=== PATIENT | male | born 1940 | race Caucasian/White ===

== ENCOUNTER → 2016-08-03 | Outpatient (CLI) | payer MEDICARE ==
[2016-08-03 09:15] LABS: CH 31.7; CHCM 34.8; HCT 47.5 % (39.0-53.0); HDW 2.67; HGB 16.1 gm/dL (13.0-17.5); MCHC 33.9 g/dL (31.0-37.0); MCV 91.6 fL (80.0-100.0); Mean Platelet Volume 6.8; RBC 5.19 m/uL (4.30-5.90); RDW 12.8 % (11.5-15.5); WBC 5.6 k/uL (3.8-10.6)
[2016-08-03 10:52] LABS: Erythrocyte Sedimentation Rate 2 mm/hr (0-15)
[2016-08-03 11:55] LABS: Hemoglobin A1C 5.6 % (4.2-6.1)
[2016-08-03 17:44] LABS: ALT 42 U/L (21-72); AST 28 U/L (17-59); Alkaline Phosphatase 49 U/L (38-126); Amylase 67 U/L (30-110); Anion Gap 12 mmol/L; Blood Urea Nitrogen 10 mg/dL (9-20); Calcium 9.6 mg/dL (8.4-10.2); Carbon Dioxide 27 mmol/L (22-30); Chloride 105 mmol/L (98-107); Cholesterol 162 mg/dL (<200); Glucose 126 mg/dL (74-99); HDL Cholesterol 35 mg/dL (40-60); Non-African American GFR(MDRD) >60 (>60 ml/min/1.73 sqM); Potassium 4.8 mmol/L (3.5-5.1); Sodium 144 mmol/L (137-145); Total Bilirubin 0.8 mg/dL (0.2-1.3); Total Protein 7.6 g/dL (6.3-8.2); Triglycerides 111 mg/dL (<150)
[2016-08-03 18:14] LABS: Prostate Specific Antigen 1.14 ng/mL (0.00-4.00)
== END | disposition home or self-care (01) ==
LOC: LABWHC1 08:03
PROVIDERS: ATTEND Family Medicine
DX: R10.9 Unspecified abdominal pain (principal); R53.83 Other fatigue; E78.5 Hyperlipidemia, unspecified; I25.10 Atherosclerotic heart disease of native coronary artery without angina pectoris; E55.9 Vitamin D deficiency, unspecified
CPT/HCPCS: 36415; 80053; 80061; 82150; 82306; 83036; 83690; 84153; 85027; 85652

== ENCOUNTER → 2018-08-02 | Outpatient (CLI) | payer MEDICARE ==
[2018-08-02 09:20] LABS: Basophils # (A) 0.1 k/uL (0-0.2); Basophils % (A) 1 %; Eosinophils # (A) 0.3 k/uL (0-0.7); Eosinophils % (A) 6 %; HCT 45.3 % (39.0-53.0); Lymphocytes # (A) 0.9 k/uL (1.0-4.8); Lymphocytes % (A) 18 %; MCH 31.3 pg (25.0-35.0); MCHC 33.2 g/dL (31.0-37.0); MCV 94.2 fL (80.0-100.0); Mean Platelet Volume 6.8; Monocytes # (A) 0.4 k/uL (0-1.0); Monocytes % (A) 8 %; Neutrophils # (A) 3.2 k/uL (1.3-7.7); Neutrophils % (A) 63 %; Platelet Count 266 k/uL (150-450); RDW 12.7 % (11.5-15.5); WBC 5.1 k/uL (3.8-10.6)
[2018-08-02 17:08] LABS: Albumin 4.6 g/dL (3.80-4.90); Albumin/Globulin Ratio 2.19 (1.60-3.17); Anion Gap 9.5 mmol/L (4.00-12.00); Calcium 9.3 mg/dL (8.7-10.3); Carbon Dioxide 25.5 mmol/L (21.6-31.8); Globulin 2.1 g/dL (1.6-3.3); LDL Cholesterol,Calculated 103.4 mg/dL (0.0-131.0); Potassium 4.4 mmol/L (3.5-5.5); Total Bilirubin 0.9 mg/dL (0.3-1.2); Total Protein 6.7 g/dL (6.2-8.2); VLDL Calculation 16.6 mg/dL (5.00-40.00)
[2018-08-02 19:13] LABS: Hemoglobin A1C 5.6 % (4.0-6.0)
== END ==
LOC: LABWHC1 08:00
PROVIDERS: ATTEND Family Medicine
DX: I48.91 Unspecified atrial fibrillation (principal); E11.9 Type 2 diabetes mellitus without complications; I10 Essential (primary) hypertension; R35.1 Nocturia
CPT/HCPCS: 36415; 80053; 80061; 83036; 84153; 84443; 85025

== ENCOUNTER → 2019-08-06 | Outpatient (CLI) | payer MEDICARE ==
[2019-08-06 07:28] LABS: Basophils # (A) 0.1 k/uL (0-0.2); Basophils % (A) 1 %; Eosinophils # (A) 0.5 k/uL (0-0.7); Eosinophils % (A) 9 %; HCT 42.6 % (39.0-53.0); HGB 14.1 gm/dL (13.0-17.5); Lymphocytes % (A) 19 %; MCH 30.5 pg (25.0-35.0); MCHC 33.1 g/dL (31.0-37.0); MCV 92.3 fL (80.0-100.0); Mean Platelet Volume 7.5; Monocytes # (A) 0.4 k/uL (0-1.0); Monocytes % (A) 8 %; Neutrophils # (A) 3.2 k/uL (1.3-7.7); Neutrophils % (A) 60 %; Platelet Count 282 k/uL (150-450); RBC 4.62 m/uL (4.30-5.90); RDW 12.7 % (11.5-15.5); WBC 5.3 k/uL (3.8-10.6)
[2019-08-06 07:30] LABS: INR 1.1 (<1.2)
[2019-08-06 13:54] LABS: African American GFR (CKD) 94.5 (60.0-200.0); Albumin 4.6 g/dL (3.80-4.90); Albumin/Globulin Ratio 2.3 (1.60-3.17); Anion Gap 8.1 mmol/L (4.00-12.00); BUN/Creat Ratio 8.89 Ratio (12.00-20.00); Calcium 9.2 mg/dL (8.7-10.3); Carbon Dioxide 26.9 mmol/L (21.6-31.8); Chol/HDL Ratio 3.89; LDL Cholesterol,Calculated 91.4 mg/dL (0.0-131.0); Non-African American GFR(CKD) 81.5 (60.0-200.0); Potassium 4.6 mmol/L (3.5-5.5); Total Bilirubin 0.5 mg/dL (0.3-1.2); Total Protein 6.6 g/dL (6.2-8.2); VLDL Calculation 15.6 mg/dL (5.00-40.00)
[2019-08-06 15:00] LABS: Hemoglobin A1C 5.6 % (4.0-6.0)
== END | disposition home or self-care (01) ==
LOC: LABWHC1 06:57
PROVIDERS: ATTEND Family Medicine
DX: Z00.00 Encounter for general adult medical examination without abnormal findings (principal); I10 Essential (primary) hypertension; N40.0 Benign prostatic hyperplasia without lower urinary tract symptoms; I48.91 Unspecified atrial fibrillation; Z79.84 Long term (current) use of oral hypoglycemic drugs
CPT/HCPCS: 36415; 80053; 80061; 82150; 83036; 83690; 84153; 85025; 85610

== ENCOUNTER → 2020-06-12 | Outpatient (CLI) | payer MEDICARE ==
--- NOTE | 2020-06-12 09:18 | XR ---
EXAMINATION TYPE: XR tibia fibula LT DATE OF EXAM: 06/12/2020 COMPARISON: NONE HISTORY: Pain TECHNIQUE: Two views are submitted. FINDINGS: The osseous structures are intact. The joint spaces are preserved. Vascular calcifications noted. IMPRESSION: 1. No acute osseous abnormality.
[2020-06-12 09:44] LABS: Basophils # (A) 0.1 k/uL (0-0.2); Basophils % (A) 1 %; Eosinophils # (A) 0.3 k/uL (0-0.7); Eosinophils % (A) 4 %; HCT 46.4 % (39.0-53.0); HGB 15.4 gm/dL (13.0-17.5); Lymphocytes # (A) 1.3 k/uL (1.0-4.8); Lymphocytes % (A) 19 %; MCH 30.8 pg (25.0-35.0); MCHC 33.1 g/dL (31.0-37.0); Mean Platelet Volume 7.5; Monocytes # (A) 0.6 k/uL (0-1.0); Monocytes % (A) 8 %; Neutrophils # (A) 4.3 k/uL (1.3-7.7); Neutrophils % (A) 65 %; Platelet Count 246 k/uL (150-450); RBC 4.99 m/uL (4.30-5.90); RDW 12.4 % (11.5-15.5); WBC 6.6 k/uL (3.8-10.6)
[2020-06-12 19:09] LABS: African American GFR (CKD) 93.8 (60.0-200.0); Albumin 4.8 g/dL (3.80-4.90); Albumin/Globulin Ratio 2.53 (1.60-3.17); Anion Gap 7.1 mmol/L (4.00-12.00); BUN/Creat Ratio 12.22 Ratio (12.00-20.00); Calcium 9.3 mg/dL (8.7-10.3); Carbon Dioxide 27.9 mmol/L (21.6-31.8); Chol/HDL Ratio 3.98; Globulin 1.9 g/dL (1.6-3.3); LDL Cholesterol,Calculated 104.2 mg/dL (0.0-131.0); Non-African American GFR(CKD) 80.9 (60.0-200.0); PSA Annual Screen 0.9 ng/mL (0.0-4.0); Potassium 4.6 mmol/L (3.5-5.5); Total Bilirubin 0.9 mg/dL (0.3-1.2); Total Protein 6.7 g/dL (6.2-8.2); VLDL Calculation 14.8 mg/dL (5.00-40.00)
[2020-06-12 19:26] LABS: Hemoglobin A1C 5.8 % (4.0-6.0)
== END | disposition home or self-care (01) ==
LOC: LABWHC1 08:33
PROVIDERS: ATTEND Family Medicine
DX: Z00.00 Encounter for general adult medical examination without abnormal findings (principal); Z12.5 Encounter for screening for malignant neoplasm of prostate; L03.116 Cellulitis of left lower limb; I10 Essential (primary) hypertension; Z79.899 Other long term (current) drug therapy
CPT/HCPCS: 80061; 80053; 82150; 83690; 85025; 83036; 73590; 36415; G0103

== ENCOUNTER → 2021-08-12 | Outpatient (CLI) | payer MEDICARE ==
[2021-08-12 15:10] LABS: Basophils # (A) 0.05 X 10*3/uL (0.00-0.10); Basophils % (A) 0.7 %; Eosinophils # (A) 0.37 X 10*3/uL (0.04-0.35); Eosinophils % (A) 5.2 %; HCT 43.8 % (39.6-50.0); HGB 14.1 g/dL (13.0-17.0); Immature Grans, Automated 0.1 %; Lymphocytes # (A) 1.04 X 10*3/uL (0.90-5.00); Lymphocytes % (A) 14.5 %; MCH 30.3 pg (27.0-32.0); MCHC 32.2 g/dL (32.0-37.0); Mean Platelet Volume 9.9 fL (9.5-12.2); Monocytes # (A) 0.91 X 10*3/uL (0.20-1.00); Monocytes % (A) 12.7 %; NRBC Per 100 WBC 0 /100 WBCS (0.0-0.0); Neutrophils % (A) 66.8 %; Platelet Count 249 X 10*3/uL (140-440); RBC 4.66 X 10*6/uL (4.40-5.60); RDW 12.5 % (11.5-14.5); WBC 7.18 X 10*3/uL (4.50-10.00)
[2021-08-12 15:35] LABS: ALT 27 U/L (10-49); AST 27 U/L (14-35); African American GFR (CKD) 99.4 (60.0-200.0); Albumin 4.3 g/dL (3.8-4.9); Albumin/Globulin Ratio 1.68 (1.60-3.17); Alkaline Phosphatase 55 U/L (41-126); Amylase 61 U/L (23-121); BUN/Creat Ratio 13.41 Ratio (12.00-20.00); Blood Urea Nitrogen 10.3 mg/dL (9.0-27.0); Calcium 9.5 mg/dL (8.7-10.3); Carbon Dioxide 24.4 mmol/L (20.0-27.5); Chloride 102 mmol/L (96-109); Chol/HDL Ratio 3.77 Ratio; Globulin 2.6 g/dL (1.6-3.3); Glucose 105 mg/dL (70-110); LDL Cholesterol,Calculated 90.5 mg/dL (0.0-131.0); Lipase 33 U/L (14-60); Non-African American GFR(CKD) 85.8 (60.0-200.0); Potassium 4.3 mmol/L (3.5-5.5); Sodium 138 mmol/L (135-145); Total Protein 6.9 g/dL (6.2-8.2); VLDL Calculation 12.36 mg/dL (5.00-40.00)
== END | disposition home or self-care (01) ==
LOC: LABWHC1 07:57
PROVIDERS: ATTEND Family Medicine
DX: Z00.00 Encounter for general adult medical examination without abnormal findings (principal); I10 Essential (primary) hypertension; E11.9 Type 2 diabetes mellitus without complications; E78.00 Pure hypercholesterolemia, unspecified; Z86.79 Personal history of other diseases of the circulatory system
CPT/HCPCS: 36415; 80053; 80061; 82150; 83036; 83690; 84153; 84443; 85025

== ENCOUNTER → 2022-09-30 | Outpatient (CLI) | payer MEDICARE ==
--- NOTE | 2022-10-02 22:56 | CT ---
EXAMINATION TYPE: CT chest wo con DATE OF EXAM: 09/30/2022 COMPARISON: None HISTORY: 82-year-old male R9 1.1, f/u on nodule right upper lung x 2years TECHNIQUE: Contiguous axial scanning of the chest without IV contrast. Coronal and sagittal reconstru ctions performed. CT DLP: 382.8 mGycm Automated exposure control for dose reduction was used. FINDINGS: Median sternotomy wires are present. Heart normal size. Aortic valve replacement noted. Ectatic ascending aorta 3.6 cm. Conventional arch vessel branching anatomy. Mild atherosclerotic calc ifications are present in the aorta. Mild ectasia upper descending thoracic aorta 3.2 cm. Large caliber to the main right and left pulmonary arteries measuring up to 3.3 cm each suggesting un derlying pulmonary hypertension. Small calcified lower left paratracheal and left hilar lymph nodes suggesting prior granulomatous dis ease. No thoracic lymphadenopathy by CT size criteria. Mild central bronchial wall thickening suggesting bronchitis or chronic asthma. Some strandy scarring or atelectasis suggested at the anterior mid and lower lungs as well as the bilateral posterior lung bases. 2 mm posterior left basilar pulmonary nodule, axial image 49. 2 mm posteromedial left lower lobe pulmonary nodule, axial image 44. Background minimal emphysematous change Hepatic hypodensities measuring up to 1.1 cm inadequate cleared characterize, likely small hepatic cy sts. Cholecystectomy clips. Left-sided colonic diverticulosis. Slight levoconvex curvature upper thoracic spine. IMPRESSION: 1. COPD WITH MINIMAL EMPHYSEMA. CHANGES SUGGEST UNDERLYING PULMONARY ARTERIAL HYPERTENSION. THERE IS ALSO EVIDENCE OF PRIOR GRANULOMATOUS DISEASE. 2. A COUPLE 2 MM PULMONARY NODULES LEFT LOWER LOBE. QUESTIONABLE CLINICAL SIGNIFICANCE. A PRECAUTI ONARY MEASURE, A 12 MONTH FOLLOW-UP CT CAN REASSESS.
== END | disposition home or self-care (01) ==
LOC: RADCTMAIN 15:09
PROVIDERS: ATTEND Family Medicine
DX: J43.9 Emphysema, unspecified (principal); L92.9 Granulomatous disorder of the skin and subcutaneous tissue, unspecified; R91.8 Other nonspecific abnormal finding of lung field
CPT/HCPCS: 71250

== ENCOUNTER → 2022-12-08 | Outpatient (CLI) | payer MEDICARE ==
[2022-12-08 09:31] LABS: HCT 42.2 % (39.0-53.0); HGB 14.2 gm/dL (13.0-17.5); MCH 31.5 pg (25.0-35.0); MCHC 33.6 g/dL (31.0-37.0); MCV 93.6 fL (80.0-100.0); Mean Platelet Volume 7.8; Platelet Count 242 k/uL (150-450); RBC 4.51 m/uL (4.30-5.90); RDW 12.2 % (11.5-15.5); WBC 6.3 k/uL (3.8-10.6)
[2022-12-08 09:36] LABS: INR 1.1 (<1.2)
[2022-12-08 09:37] LABS: Prothrombin Time 11.4 sec (9.0-12.0)
[2022-12-08 09:56] LABS: African American GFR (CKD) >90 (>60 ml/min/1.73 sqM); Anion Gap 6 mmol/L; Blood Urea Nitrogen 14 mg/dL (9-20); Carbon Dioxide 27 mmol/L (22-30); Chloride 102 mmol/L (98-107); Glucose 96 mg/dL (74-99); Non-African American GFR(CKD) >90 (>60 ml/min/1.73 sqM); Potassium 4.7 mmol/L (3.5-5.1); Sodium 135 mmol/L (137-145)
== END | disposition home or self-care (01) ==
LOC: LABWHC1 08:07
PROVIDERS: ATTEND Internal Medicine
DX: Z01.812 Encounter for preprocedural laboratory examination (principal); I48.4 Atypical atrial flutter
CPT/HCPCS: 36415; 80048; 85027; 85610

== ENCOUNTER → 2023-04-04 | Outpatient (CLI) | payer MEDICARE | END | disposition home or self-care (01) | LOC: LABWHC1 10:13 | PROVIDERS: ATTEND Internal Medicine | DX: I48.4 Atypical atrial flutter (principal); I47.20 Ventricular tachycardia, unspecified; I44.7 Left bundle-branch block, unspecified; R94.31 Abnormal electrocardiogram [ECG] [EKG] | CPT/HCPCS: 36415; 93005 ==

== ENCOUNTER 2023-04-07 17:28 | Observation (INO) | payer MEDICARE ==
[2023-04-07 18:19] LABS: Basophils % (A) 0 %; Eosinophils # (A) 0.2 k/uL (0-0.7); Eosinophils % (A) 1 %; HCT 41.5 % (39.0-53.0); HGB 13.9 gm/dL (13.0-17.5); Lymphocytes # (A) 0.8 k/uL (1.0-4.8); Lymphocytes % (A) 4 %; MCH 31.3 pg (25.0-35.0); MCHC 33.5 g/dL (31.0-37.0); MCV 93.6 fL (80.0-100.0); Mean Platelet Volume 8.3; Monocytes # (A) 1.3 k/uL (0-1.0); Monocytes % (A) 6 %; Neutrophils # (A) 17.8 k/uL (1.3-7.7); Neutrophils % (A) 88 %; Platelet Count 247 k/uL (150-450); RBC 4.43 m/uL (4.30-5.90); RDW 12.5 % (11.5-15.5); WBC 20.2 k/uL (3.8-10.6)
[2023-04-07 18:29] LABS: ALT 54 U/L (4-49); AST 35 U/L (17-59); African American GFR (CKD) >90 (>60 ml/min/1.73 sqM); Alkaline Phosphatase 62 U/L (38-126); Anion Gap 11 mmol/L; Blood Urea Nitrogen 13 mg/dL (9-20); Carbon Dioxide 22 mmol/L (22-30); Chloride 102 mmol/L (98-107); Glucose 191 mg/dL (74-99); Non-African American GFR(CKD) >90 (>60 ml/min/1.73 sqM); Potassium 4.7 mmol/L (3.5-5.1); Sodium 135 mmol/L (137-145); Total Bilirubin 1.3 mg/dL (0.2-1.3); Total Protein 6.6 g/dL (6.3-8.2)
[2023-04-07 18:31] LABS: INR 1.5 (<1.2); Partial Thromboplastin Time 32.8 sec (22.0-30.0); Prothrombin Time 15.4 sec (10.0-12.5)
[2023-04-07 18:38] LABS: NT-Pro-B-Type Natriuretic Pept 4030 pg/mL
--- NOTE | 2023-04-07 19:15 | XR ---
EXAMINATION TYPE: XR chest 2V DATE OF EXAM: 04/07/2023 6:17 PM CLINICAL INDICATION:Male, 82 years old with history of difficulty breathing; [facility] COMPARISON: Chest radiographs from 01/14/2012 TECHNIQUE: XR chest 2V Frontal and lateral views of the chest. FINDINGS: Lungs/Pleura COPD changes with flattening of the diaphragm. Airspace opacities in the lower lung and perihilar regions. No evidence of pneumothorax. Blunting of the costophrenic angles is present. Pulmonary vascularity: Pulmonary vascular congestion. Heart/mediastinum: Cardiomediastinal silhouette is enlarged and stable. The aorta appears tortuous, a finding usually associated with either atherosclerosis or systemic hypertension. Musculoskeletal: No acute osseous pathology. Midline sternotomy wires are noted. Other findings: None IMPRESSION: 1. Interstitial opacities in the bilateral perihilar region and left lower lung correlate for pneumo flores. 2. Correlate with serum BNP for congestive heart failure. COPD.
[2023-04-07] MEDS ORDERED: FUROSEMIDE 10 MG/ML 4 ML VIAL IV STA (20:31)
--- NOTE | 2023-04-07 20:31 | ED ---
SOB HPI - General Chief Complaint: Shortness of Breath Stated Complaint: chest pain Time Seen by Provider: 04/07/23 17:58 Source: patient Mode of arrival: ambulatory Limitations: no limitations - History of Present Illness Initial Comments: 82-year-old male presenting with chief complaint of chest pain. Patient had cardioversion today performed at [place] for atrial fibrillation. States that shortly after he developed shortness of breath. Patient states that he has been short of breath while laying flat recently and has had a productive cough of yellow sputum. No fevers or chills. No nausea or vomiting. No abdominal pain. No chest pain. No lower extremity swelling. - Related Data Home Medications Medication Instructions Recorded Confirmed Albuterol Inhaler [Ventolin Hfa 1 puff INHALATION RT-Q4H PRN 04/07/23 04/07/23 Inhaler] Aspirin EC [Ecotrin Low Dose] 81 mg PO DAILY 04/07/23 04/07/23 Lansoprazole [Prevacid] 30 mg PO W/SUPPER 04/07/23 04/07/23 Magnesium Oxide [Magox 400] 400 mg PO DAILY 04/07/23 04/07/23 Metoprolol Tartrate [Lopressor] 25 mg PO BID 04/07/23 04/07/23 Montelukast [Singulair] 10 mg PO HS 04/07/23 04/07/23 Multivit-Mins/Iron/Folic/Lycop 1 tab PO DAILY 04/07/23 04/07/23 [Centrum Men's Tablet] [place]-3 Acid Ethyl Esters [Lovaza] 2 gm PO BID 04/07/23 04/07/23 Propafenone [Rythmol] 150 mg PO BID@1500,2100 04/07/23 04/07/23 Propafenone [Rythmol] 225 mg PO DAILY 04/07/23 04/07/23 Rivaroxaban [Xarelto] 20 mg PO W/SUPPER 04/07/23 04/07/23 amLODIPine BESYLATE/BENAZEPRIL 1 cap PO HS 04/07/23 04/07/23 [Lotrel 5-20 mg Capsule] metFORMIN HCL ER [Glucophage XR] 500 mg PO AC-BID 04/07/23 04/07/23 tadalafiL 5 mg PO DAILY 04/07/23 04/07/23 Allergies Allergy/AdvReac Type Severity Reaction Status Date / Time No Known Allergies Allergy Verified 04/07/23 22:22 Review of Systems ROS Statement: Those systems with pertinent positive or pertinent negative responses have been documented in the HPI. ROS Other: All systems not noted in ROS Statement are negative. Past Medical History Past Medical History: Atrial Fibrillation History of Any Multi-Drug Resistant Organisms: None Reported Past Surgical History: Heart Catheterization Past Psychological History: Unable to Obtain Past Alcohol Use History: None Reported Past Drug Use History: None Reported General Exam Limitations: no limitations General appearance: alert, in no apparent distress Head exam: Present: atraumatic, normocephalic, normal inspection Eye exam: Present: normal appearance, EOMI Neck exam: Present: normal inspection, full ROM Respiratory exam: Present: respiratory distress, rales, accessory muscle use. Absent: normal lung sounds bilaterally Cardiovascular Exam: Present: regular rate, normal rhythm, normal heart sounds. Absent: systolic murmur, diastolic murmur, rubs, gallop, clicks Extremities exam: Absent: pedal edema Neurological exam: Present: alert, oriented X3 Psychiatric exam: Present: normal affect, normal mood Skin exam: Present: warm, dry, intact, normal color. Absent: rash Course Vital Signs 04/07/23 04/07/23 04/07/23 17:47 18:00 18:01 Temperature 99 F Pulse Rate 86 Respiratory 18 24 Rate Blood Pressure 144/73 O2 Sat by Pulse 88 L 91 L Oximetry Fraction of Inspired Oxygen (FIO2) 04/07/23 04/07/23 04/07/23 18:02 18:03 18:08 Temperature Pulse Rate 77 Respiratory 22 Rate Blood Pressure 150/95 O2 Sat by Pulse 92 L 94 L 95 Oximetry Fraction of Inspired Oxygen (FIO2) 04/07/23 04/07/23 18:39 21:20 Temperature Pulse Rate 61 Respiratory 18 Rate Blood Pressure 134/77 O2 Sat by Pulse 96 Oximetry Fraction of 50 Inspired Oxygen (FIO2) Medical Decision Making - Medical Decision Making Was pt. sent in by a medical professional or institution ([facility], DIETETIC TECH, urgent care, hospital, or [place] health care facility...) When possible be specific @ -No Did you speak to anyone other than the patient for history (EMS, parent, family, police, friend...)? What history was obtained from this source @ -No Did you review nursing and triage notes (agree or disagree)? Why? @ -I reviewed and agree with nursing and triage notes Were old charts reviewed (outside hosp., previous admission, EMS record, old EKG, old radiological studies, urgent care reports/EKG's, [place] health care facility records)? Report findings @ -No old charts were reviewed Differential Diagnosis (chest pain, altered mental status, abdominal pain women, abdominal pain men, vaginal bleeding, weakness, fever, dyspnea, syncope, headache, dizziness, GI bleed, back pain, seizure, CVA, palpatations, mental health, musculoskeletal)? @ -MDM Differential Dyspnea: Coronary syndrome, arrhythmia, tamponade, asthma, COPD, pulmonary embolism, pneumonia, pneumothorax, pulmonary effusion, anaphylaxis, diabetic ketoacidosis, flailed chest, pulmonary contusion, diaphragmatic rupture, anemia, neuromuscular this is not meant to be an all-inclusive list. EKG interpreted by me (3pts min.). @ -Sinus rhythm with first-degree AV block with occasional supraventricular premature complexes. Ventricular rate 85. MI interval 215. QRS 173. QTC 405. QTC 447. X-rays interpreted by me (1pt min.). @ -Interstitial opacities in the bilateral perihilar region and left lower lung correlate for pneumonia. Correlate with serum BNP for congestive heart failure. COPD. CT interpreted by me (1pt min.). @ -None done U/S interpreted by me (1pt. min.). @ -None done What testing was considered but not performed or refused? (CT, X-rays, U/S, labs)? Why? @ -None What meds were considered but not given or refused? Why? @ -None Did you discuss the management of the patient with other professionals (professionals i.e. , PA, DIETETIC TECH, lab, RT, psych nurse, rn social services, research assistant, teacher, flight communications officer, rn case mgr)? Give summary @ -My attending spoke with Dr. Pearce who accepted admission Was smoking cessation discussed for >3mins.? @ -No Was critical care preformed (if so, how long)? @ -No Were there social determinants of health that impacted care today? How? (Homelessness, low income, unemployed, alcoholism, drug addiction, transportation, low edu. Level, literacy, decrease access to med. care, care home, rehab)? @ -No Was there de-escalation of care discussed even if they declined (Discuss DNR or withdrawal of care, Hospice)? DNR status @ -No What co-morbidities impacted this encounter? (DM, HTN, Smoking, COPD, CAD, Cancer, CVA, ARF, Chemo, Hep., AIDS, mental health diagnosis, sleep apnea, morbid obesity)? @ -Atrial fibrillation, congestive heart care Was patient admitted / discharged? Hospital course, mention meds given and route, prescriptions, significant lab abnormalities, going to OR and other pertinent info. @ -82-year-old male presenting with chief complaint of dyspnea sudden onset this afternoon. Patient had a cardioversion performed earlier today. On physical exam reveals her to the bilateral bases. WBC 20.2. BNP 4030 negative troponin. Chest x-ray shows signs of pneumonia and congestive heart failure. Patient will be treated with Lasix and giving one-time dose of Rocephin and azithromycin in the ER. Patient required BiPAP, however was able to be weaned off after several hours. He will be admitted. He is agreeable with this plan. I discussed this case with my attending Dr. Colmenares Undiagnosed new problem with uncertain prognosis? @ -No Drug Therapy requiring intensive monitoring for toxicity (Heparin, Nitro, Insulin, Cardizem)? @ -No Were any procedures done? @ -No Diagnosis/symptom? @ -Congestive heart failure Acute, or Chronic, or Acute on Chronic? @ -acute Uncomplicated (without systemic symptoms) or Complicated (systemic symptoms)? @ -complicated Side effects of treatment? @ -No Exacerbation, Progression, or Severe Exacerbation? @ -No Poses a threat to life or bodily function? How? (Chest pain, [place], ID, pneumonia, PE, COPD, DKA, ARF, appy, cholecystitis, CVA, Diverticulitis, Homicidal, Suicidal, threat to staff... and all critical care pts) @ -yes - Lab Data Result diagrams: 04/07/23 18:08 04/07/23 18:08 Lab Results 04/07/23 04/07/23 04/07/23 Range/Units 18:08 18:08 18:08 WBC 20.2 H (3.8-10.6) k/uL RBC 4.43 (4.30-5.90) m/uL Hgb 13.9 (13.0-17.5) gm/dL Hct 41.5 (39.0-53.0) % MCV 93.6 (80.0-100.0) fL MCH 31.3 (25.0-35.0) pg MCHC 33.5 (31.0-37.0) g/dL RDW 12.5 (11.5-15.5) % Plt Count 247 (150-450) k/uL MPV 8.3 Neutrophils % 88 % Lymphocytes % 4 % Monocytes % 6 % Eosinophils % 1 % Basophils % 0 % Neutrophils # 17.8 H (1.3-7.7) k/uL Lymphocytes # 0.8 L (1.0-4.8) k/uL Monocytes # 1.3 H (0-1.0) k/uL Eosinophils # 0.2 (0-0.7) k/uL Basophils # 0.0 (0-0.2) k/uL PT 15.4 H (10.0-12.5) sec INR 1.5 H (<1.2) APTT 32.8 H (22.0-30.0) sec Sodium 135 L (137-145) mmol/L Potassium 4.7 (3.5-5.1) mmol/L Chloride 102 (98-107) mmol/L Carbon Dioxide 22 (22-30) mmol/L Anion Gap 11 mmol/L BUN 13 (9-20) mg/dL Creatinine 0.61 L (0.66-1.25) mg/dL Est GFR (CKD-EPI)AfAm >90 (>60 ml/min/1.73 sqM) Est GFR (CKD-EPI)NonAf >90 (>60 ml/min/1.73 sqM) Glucose 191 H (74-99) mg/dL Calcium 9.0 (8.4-10.2) mg/dL Total Bilirubin 1.3 (0.2-1.3) mg/dL AST 35 (17-59) U/L ALT 54 H (4-49) U/L Alkaline Phosphatase 62 (38-126) U/L Troponin I (0.000-0.034) ng/mL NT-Pro-B Natriuret Pep 4030 pg/mL Total Protein 6.6 (6.3-8.2) g/dL Albumin 4.0 (3.5-5.0) g/dL 04/07/23 Range/Units 18:14 WBC (3.8-10.6) k/uL RBC (4.30-5.90) m/uL Hgb (13.0-17.5) gm/dL Hct (39.0-53.0) % MCV (80.0-100.0) fL MCH (25.0-35.0) pg MCHC (31.0-37.0) g/dL RDW (11.5-15.5) % Plt Count (150-450) k/uL MPV Neutrophils % % Lymphocytes % % Monocytes % % Eosinophils % % Basophils % % Neutrophils # (1.3-7.7) k/uL Lymphocytes # (1.0-4.8) k/uL Monocytes # (0-1.0) k/uL Eosinophils # (0-0.7) k/uL Basophils # (0-0.2) k/uL PT (10.0-12.5) sec INR (<1.2) APTT (22.0-30.0) sec Sodium (137-145) mmol/L Potassium (3.5-5.1) mmol/L Chloride (98-107) mmol/L Carbon Dioxide (22-30) mmol/L Anion Gap mmol/L BUN (9-20) mg/dL Creatinine (0.66-1.25) mg/dL Est GFR (CKD-EPI)AfAm (>60 ml/min/1.73 sqM) Est GFR (CKD-EPI)NonAf (>60 ml/min/1.73 sqM) Glucose (74-99) mg/dL Calcium (8.4-10.2) mg/dL Total Bilirubin (0.2-1.3) mg/dL AST (17-59) U/L ALT (4-49) U/L Alkaline Phosphatase (38-126) U/L Troponin I <0.012 (0.000-0.034) ng/mL NT-Pro-B Natriuret Pep pg/mL Total Protein (6.3-8.2) g/dL Albumin (3.5-5.0) g/dL Disposition Clinical Impression: Congestive heart failure Disposition: ADMITTED IP TO THIS HOSP Condition: Fair Referrals: Orlando Baird MD [REFERRING] - 1-2 days Time of Disposition: 20:31
[2023-04-07] MEDS ORDERED: cefTRIAXone IN SWFI 1,000 MG/10 ML SYRINGE IVP STA (20:32)
[2023-04-07] MEDS ORDERED: AZITHROMYCIN 500 MG in SODIUM CHLORIDE 0.9% 250 ML IVPB STA (20:32)
[2023-04-07] MEDS ORDERED: NALOXONE 0.4 MG/ML 1 ML VIAL IV PRN (21:43)
[2023-04-07] MEDS ORDERED: ALPRAZolam 0.25 MG TAB PO STA (23:58)
[2023-04-08] MEDS ORDERED: PANTOPRAZOLE 40 MG TABLET PO SCH (07:30)
[2023-04-08] MEDS ORDERED: metFORMIN 500 MG TAB PO SCH (07:30)
[2023-04-08] MEDS ORDERED: MAGNESIUM OXIDE 400 MG TAB PO SCH (09:00)
[2023-04-08] MEDS ORDERED: ASPIRIN 81 MG PO SCH (09:00)
[2023-04-08] MEDS ORDERED: METOPROLOL TARTRATE 25 MG TAB PO SCH (09:00)
[2023-04-08] MEDS ORDERED: MULTIVITAMINS, THERA 1 EACH TAB PO SCH (09:00)
[2023-04-08] MEDS ORDERED: NON FORMULARY DRUG (Omega-3 Acid Ethyl Esters [Lovaza] 1 GM Capsule) PO SCH (09:00)
[2023-04-08] MEDS ORDERED: PROPAFENONE 150 MG TAB PO SCH ×2 (09:00→15:00)
[2023-04-08 09:26] VITALS: RESP 16; TEMP 98.6
--- NOTE | 2023-04-08 11:19 | P.CRDCN ---
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 Arambula at [facility] who presented with symptoms of dyspnea. The patient has a known history of aortic valve disease, status post aortic valve replacement with a bioprosthetic valve, history of mild CAD at that time as well as a history of atrial fibrillation status post ablation, done 3 times most recently in November. Post-ablation he was in atrial fibrillation and underwent cardioversion yesterday at [facility] with voodoo of sinus mechanism. Postprocedure he became dyspneic and presented to the emergency room with evidence of CHF. He had the recent upper respiratory infection but no fever. He's feeling better this morning. He is usually active physically, walks and jogs 5 days a week. He does not feel the palpitations on a regular basis but feels better when he is in sinus mechanism. He continues to be in sinus mechanism at this time. He has no PND, orthopnea or peripheral edema. He has no chest discomfort. He was told that he has a normal left ventricular systolic function. He has a history of hypertension and diabetes, he is nonsmoker. He is feeling better this morning and continues to be in sinus mechanism Medications: Lotrel 520 once a day, metformin 500 mg twice a day, Rythmol 150 mg twice a day and 225 milligrams once a day. Lopressor 25 mg twice a day, aspirin once a day, Singulair,Xarelto 20 mg daily Review of Systems: Respiratory: He had the dyspnea on exertion and recent symptoms of upper respiratory infection GI: No nausea or vomiting . No history of peptic ulcer disease. No recent GI bleed. : No hematuria or dysuria. Nervous System: No stroke or seizure. Physical Examination: 82-year-old male, alert and oriented no apparent distress ,Blood pressure 134/70, Heart rate 60 Head: Normocephalic. Eyes: Sclerae nonicteric. Neck: Good carotid upstroke, no bruit, no jugular venous distention. Lungs: Few scattered rhonchi with no wheezes Heart: Regular rate and rhythm, S1-S2, no S3, no rub. Systolic ejection murmur 2/6 at the base. Abdomen: Soft nontender, positive bowel sounds no organomegaly. Extremities: No edema, intact distal pulses. Labs: Potassium 4.7, BUN 13, creatinine 0.61, hemoglobin 13.9, WBC 20.2. Chest x-ray was findings suggestive of CHF EKG: Sinus mechanism, first-degree AV block, IVCD Impression: 1. Acute dyspneic event post cardioversion with evidence of CHF. In the past he was told that he has a preserved systolic function 2. Atrial fibrillation status post ablation and recent cardioversion, in sinus mechanism 3. Status post aortic valve replacement 4. History of hypertension 5. History of diabetes 6. Mild CAD per patient Plan: 1. Oral diuretics for one week 2. Obtain an echocardiogram with Doppler 3. Increase physical activity 4. If he remains stable probable discharged home soon and follow-up with primary hydraulic rockbreaker operator 5. Thank you for this consult we will follow with you Past Medical History Past Medical History: Atrial Fibrillation, Pneumonia History of Any Multi-Drug Resistant Organisms: None Reported Past Surgical History: Coronary Bypass/CABG Additional Past Surgical History / Comment(s): cardioversion Past Psychological History: Unable to Obtain Smoking Status: Former smoker Past Alcohol Use History: None Reported Past Drug Use History: None Reported Medications and Allergies Home Medications Medication Instructions Recorded Confirmed Type Albuterol Inhaler [Ventolin Hfa 1 puff INHALATION RT-Q4H PRN 04/07/23 04/07/23 History Inhaler] Aspirin EC [Ecotrin Low Dose] 81 mg PO DAILY 04/07/23 04/07/23 History Lansoprazole [Prevacid] 30 mg PO W/SUPPER 04/07/23 04/07/23 History Magnesium Oxide [Magox 400] 400 mg PO DAILY 04/07/23 04/07/23 History Metoprolol Tartrate [Lopressor] 25 mg PO BID 04/07/23 04/07/23 History Montelukast [Singulair] 10 mg PO HS 04/07/23 04/07/23 History Multivit-Mins/Iron/Folic/Lycop 1 tab PO DAILY 04/07/23 04/07/23 History [Centrum Men's Tablet] [place]-3 Acid Ethyl Esters [Lovaza] 2 gm PO BID 04/07/23 04/07/23 History Propafenone [Rythmol] 150 mg PO BID@1500,2100 04/07/23 04/07/23 History Propafenone [Rythmol] 225 mg PO DAILY 04/07/23 04/07/23 History Rivaroxaban [Xarelto] 20 mg PO W/SUPPER 04/07/23 04/07/23 History amLODIPine BESYLATE/BENAZEPRIL 1 cap PO HS 04/07/23 04/07/23 History [Lotrel 5-20 mg Capsule] metFORMIN HCL ER [Glucophage XR] 500 mg PO AC-BID 04/07/23 04/07/23 History tadalafiL 5 mg PO DAILY 04/07/23 04/07/23 History Allergies Allergy/AdvReac Type Severity Reaction Status Date / Time No Known Allergies Allergy Verified 04/07/23 22:22 Physical Exam Vitals: Vital Signs Temp Pulse Pulse Resp BP BP Pulse Ox 04/08/23 08:58 95 04/08/23 08:00 98.6 F 66 16 134/74 93 L 04/08/23 04:00 98.4 F 70 18 114/58 92 L 04/07/23 23:39 98.2 F 90 18 144/65 97 04/07/23 23:07 86 20 135/79 96 04/07/23 21:20 61 18 134/77 96 04/07/23 18:39 04/07/23 18:08 77 22 150/95 95 04/07/23 18:03 94 L 04/07/23 18:02 92 L 04/07/23 18:01 91 L 04/07/23 18:00 24 04/07/23 17:47 99 F 86 18 144/73 88 L FiO2 04/08/23 08:58 04/08/23 08:00 04/08/23 04:00 04/07/23 23:39 04/07/23 23:07 04/07/23 21:20 04/07/23 18:39 50 04/07/23 18:08 04/07/23 18:03 04/07/23 18:02 04/07/23 18:01 04/07/23 18:00 04/07/23 17:47 Intake and Output 04/07/23 04/08/23 04/08/23 22:59 06:59 14:59 Output Total 1500 250 Balance -1500 -250 Output: Urine 1500 250 Other: Voiding Method Urinal # Voids 3 1 Weight 79.379 kg 80.8 kg Results 04/07/23 18:08 04/07/23 18:08 Cardiac Enzymes 04/07/23 04/07/23 Range/Units 18:08 18:14 AST 35 (17-59) U/L Troponin I <0.012 (0.000-0.034) ng/mL Coagulation 04/07/23 Range/Units 18:08 PT 15.4 H (10.0-12.5) sec APTT 32.8 H (22.0-30.0) sec CBC 04/07/23 Range/Units 18:08 WBC 20.2 H (3.8-10.6) k/uL RBC 4.43 (4.30-5.90) m/uL Hgb 13.9 (13.0-17.5) gm/dL Hct 41.5 (39.0-53.0) % Plt Count 247 (150-450) k/uL Comprehensive Metabolic Panel 04/07/23 Range/Units 18:08 Sodium 135 L (137-145) mmol/L Potassium 4.7 (3.5-5.1) mmol/L Chloride 102 (98-107) mmol/L Carbon Dioxide 22 (22-30) mmol/L BUN 13 (9-20) mg/dL Creatinine 0.61 L (0.66-1.25) mg/dL Glucose 191 H (74-99) mg/dL Calcium 9.0 (8.4-10.2) mg/dL AST 35 (17-59) U/L ALT 54 H (4-49) U/L Alkaline Phosphatase 62 (38-126) U/L Total Protein 6.6 (6.3-8.2) g/dL Albumin 4.0 (3.5-5.0) g/dL Current Medications Generic Name Dose Route Start Last Admin Trade Name Freq PRN Reason Stop Dose Admin Amlodipine Besylate 5 mg 04/08/23 21:00 Amlodipine 5 Mg Tab PO HS RUBEN Aspirin 81 mg 04/08/23 09:00 04/08/23 09:08 Aspirin 81 Mg PO 81 mg DAILY RUBEN Administration Lisinopril 20 mg 04/08/23 21:00 Lisinopril 20 Mg Tab PO HS RUBEN Magnesium Oxide 400 mg 04/08/23 09:00 04/08/23 09:08 Magnesium Oxide 400 Mg Tab PO 400 mg DAILY RUBEN Administration Metformin HCl 500 mg 04/08/23 07:30 04/08/23 07:34 Metformin 500 Mg Tab PO 500 mg AC-BID RUBEN Administration Metoprolol Tartrate 25 mg 04/08/23 09:00 04/08/23 09:07 Metoprolol Tartrate 25 Mg Tab PO 25 mg BID RUBEN Administration Montelukast Sodium 10 mg 04/08/23 21:00 Montelukast 10 Mg Tab PO HS [facility] Multivitamins 1 each 04/08/23 09:00 04/08/23 09:07 Multivitamins, Thera 1 Each Tab PO 1 each DAILY [facility] Administration Naloxone HCl 0.2 mg 04/07/23 21:43 Naloxone 0.4 Mg/Ml 1 Ml Vial IV Q2M PRN Opioid Reversal Non-Formulary Medication 2 gm 04/08/23 09:00 04/08/23 09:10 [place]-3 Acid Ethyl Esters [Lovaza] PO Not Given BID [facility] Non-Formulary Medication 5 mg 04/08/23 21:00 Tadalafil [Tadalafil] PO DAILY [facility] Pantoprazole Sodium 40 mg 04/08/23 07:30 04/08/23 06:32 Pantoprazole 40 Mg Tablet PO 40 mg AC-BRKFST [facility] Administration Propafenone HCl 150 mg 04/08/23 15:00 Propafenone 150 Mg Tab PO BID@1500,2100 [facility] Propafenone HCl 225 mg 04/08/23 09:00 04/08/23 09:08 Propafenone 150 Mg Tab PO 225 mg DAILY [facility] Administration Rivaroxaban 20 mg 04/08/23 17:30 Rivaroxaban 20 Mg Tab PO W/SUPPER [facility] Protocol Intake and Output 04/07/23 04/08/23 04/08/23 22:59 06:59 14:59 Output Total 1500 250 Balance -1500 -250 Output: Urine 1500 250 Other: Voiding Method Urinal # Voids 3 1 Weight 79.379 kg 80.8 kg 04/07/23 18:08 04/07/23 18:08
[2023-04-08] MEDS ORDERED: FUROSEMIDE 20 MG TAB PO SCH (11:30)
--- NOTE | 2023-04-08 13:50 | P.HPIM ---
History of Present Illness H&P Date: 04/08/23 Chief Complaint: Shortness of breath after cardioversion This 82-year-old white male patient underwent a cardioversion yesterday at [facility]. He has a long-standing history of atrial fibrillation, aortic valve disease, aortic valve replacement, and history of ablation. He reports a successful cardioversion. He became dyspneic and came to the emergency room wit h evidence of congestive heart failure last night. His chest x-ray shows a pneumonia. Also some CHF. He feels much better this morning. He is a very active 82-year-old. He has a history of hypertension and diabetes. Currently denies any chest pains pressures or shortness of breath. He does com plain of some congestion and wheeze. He is had upper respiratory tract infection for the past 2 weeks. Discussed with him the chest x-ray results. He has received azithromycin and ceftriaxone. Review of Systems All systems: negative Past Medical History Past Medical History: Atrial Fibrillation, Pneumonia History of Any Multi-Drug Resistant Organisms: None Reported Past Surgical History: Coronary Bypass/CABG Additional Past Surgical History / Comment(s): cardioversion Past Psychological History: Unable to Obtain Smoking Status: Former smoker Past Alcohol Use History: None Reported Past Drug Use History: None Reported Medications and Allergies Home Medications Medication Instructions Recorded Confirmed Type Albuterol Inhaler [Ventolin Hfa 1 puff INHALATION RT-Q4H PRN 04/07/23 04/07/23 History Inhaler] Aspirin EC [Ecotrin Low Dose] 81 mg PO DAILY 04/07/23 04/07/23 History Lansoprazole [Prevacid] 30 mg PO W/SUPPER 04/07/23 04/07/23 History Magnesium Oxide [Magox 400] 400 mg PO DAILY 04/07/23 04/07/23 History Metoprolol Tartrate [Lopressor] 25 mg PO BID 04/07/23 04/07/23 History Montelukast [Singulair] 10 mg PO HS 04/07/23 04/07/23 History Multivit-Mins/Iron/Folic/Lycop 1 tab PO DAILY 04/07/23 04/07/23 History [Centrum Men's Tablet] [place]-3 Acid Ethyl Esters [Lovaza] 2 gm PO BID 04/07/23 04/07/23 History Propafenone [Rythmol] 150 mg PO BID@1500,2100 04/07/23 04/07/23 History Propafenone [Rythmol] 225 mg PO DAILY 04/07/23 04/07/23 History Rivaroxaban [Xarelto] 20 mg PO W/SUPPER 04/07/23 04/07/23 History amLODIPine BESYLATE/BENAZEPRIL 1 cap PO HS 04/07/23 04/07/23 History [Lotrel 5-20 mg Capsule] metFORMIN HCL ER [Glucophage XR] 500 mg PO AC-BID 04/07/23 04/07/23 History tadalafiL 5 mg PO DAILY 04/07/23 04/07/23 History Allergies Allergy/AdvReac Type Severity Reaction Status Date / Time No Known Allergies Allergy Verified 04/07/23 22:22 Physical Exam Vitals: Vital Signs Temp Pulse Pulse Resp BP BP Pulse Ox 04/08/23 08:58 95 04/08/23 08:00 98.6 F 66 16 134/74 93 L 04/08/23 04:00 98.4 F 70 18 114/58 92 L 04/07/23 23:39 98.2 F 90 18 144/65 97 04/07/23 23:07 86 20 135/79 96 04/07/23 21:20 61 18 134/77 96 04/07/23 18:39 04/07/23 18:08 77 22 150/95 95 04/07/23 18:03 94 L 04/07/23 18:02 92 L 04/07/23 18:01 91 L 04/07/23 18:00 24 04/07/23 17:47 99 F 86 18 144/73 88 L FiO2 04/08/23 08:58 04/08/23 08:00 04/08/23 04:00 04/07/23 23:39 04/07/23 23:07 04/07/23 21:20 04/07/23 18:39 50 04/07/23 18:08 04/07/23 18:03 04/07/23 18:02 04/07/23 18:01 04/07/23 18:00 04/07/23 17:47 Intake and Output 04/07/23 04/08/23 04/08/23 22:59 06:59 14:59 Output Total 1500 250 Balance -1500 -250 Output: Urine 1500 250 Other: Voiding Method Urinal Urinal # Voids 3 1 Weight 79.379 kg 80.8 kg GENERAL: Well-appearing, well-nourished and in no acute distress. HEAD: Atraumatic, normocephalic. EYES: Pupils equal round and reactive to light, extraocular movements intact, sclera anicteric, conjunctiva are normal. ENT:nares patent, oropharynx clear without exudates. Moist mucous membranes. NECK: Normal range of motion, supple without lymphadenopathy or JVD, no thyromegaly LUNGS: Breath sounds coarse with occasional rhonchi and intermittent wheezing. HEART: Regular rate and rhythm without murmurs, rubs or gallops.S1S2 Normal ABDOMEN: Soft, nontender, normoactive bowel sounds. No guarding, no rebound. No masses appreciated. EXTREMITIES: Normal range of motion, no pitting or edema. No clubbing or cyanosis. NEUROLOGICAL: Cranial nerves II through XII grossly intact. Normal speech, normal gait. PSYCH: Normal mood, normal affect. SKIN: Warm, Dry, normal turgor, no rashes or lesions noted. Results CBC & Chem 7: 04/07/23 18:08 04/07/23 18:08 Labs: Abnormal Lab Results - Last 24 Hours (Table) 04/07/23 04/07/23 04/07/23 Range/Units 18:08 18:08 18:08 WBC 20.2 H (3.8-10.6) k/uL Neutrophils # 17.8 H (1.3-7.7) k/uL Lymphocytes # 0.8 L (1.0-4.8) k/uL Monocytes # 1.3 H (0-1.0) k/uL PT 15.4 H (10.0-12.5) sec INR 1.5 H (<1.2) APTT 32.8 H (22.0-30.0) sec Sodium 135 L (137-145) mmol/L Creatinine 0.61 L (0.66-1.25) mg/dL Glucose 191 H (74-99) mg/dL ALT 54 H (4-49) U/L Chest x-ray: report reviewed Thrombosis Risk Factor Assmnt - DVT/VTE Prophylaxis DVT/VTE Prophylaxis: Pharmacologic Prophylaxis ordered (Resume his home Xarelto) - Choose All That Apply Any of the Below Risk Factors Present?: Yes Each Factor Represents 1 point: Heart failure (<1month), Serious lung disease i ncl. pneumonia (< 1month) Other Risk Factors: Yes Each Risk Factor Represents 3 Points: Age 75 years or older Other congenital or acquired thrombophilia - If yes, enter type in comment: No Thrombosis Risk Factor Assessment Total Risk Factor Score: 5 Thrombosis Risk Factor Assessment Level: High Risk Assessment and Plan (1) Aortic valve replaced Current Visit: Yes Status: Acute Code(s): Z95.2 - PRESENCE OF PROSTHETIC HEART VALVE SNOMED Code(s): 2536533556564 (2) H/O cardiac radiofrequency ablation Current Visit: Yes Status: Acute Code(s): Z98.890 - OTHER SPECIFIED POSTPROCEDURAL STATES SNOMED Code(s): 505911085 (3) History of cardioversion Current Visit: Yes Status: Acute Code(s): Z92.89 - PERSONAL HISTORY OF OTHER MEDICAL TREATMENT SNOMED Code(s): 97680756350935 (4) Type 2 diabetes mellitus with other specified complication Current Visit: Yes Status: Acute Code(s): E11.69 - TYPE 2 DIABETES MELLITUS WITH OTHER SPECIFIED COMPLICATION SNOMED Code(s): 08583627 (5) Type 2 diabetes mellitus with other circulatory complications Current Visit: Yes Status: Acute Code(s): E11.59 - TYPE 2 DIABETES MELLITUS WITH OTH CIRCULATORY COMPLICATIONS SNOMED Code(s): 66665568 (6) Pneumonia Current Visit: Yes Status: Acute Code(s): J18.9 - PNEUMONIA, UNSPECIFIED ORGANISM SNOMED Code(s): 055956101 (7) Congestive heart failure Current Visit: Yes Status: Acute Code(s): I50.9 - HEART FAILURE, UNSPECIFIED SNOMED Code(s): 88150300 Plan: We will consult cardiology. Weight on there factors. I'll start him on Augmentin. He received azithromycin and Rocephin. We'll add a Medrol Dosepak and some guaifenesin. He may be discharged home later today. Depending on cardiology's wishes. Reevaluate him in the next 24 hours if he needs to stay.
[2023-04-08] MEDS ORDERED: guaiFENesin 600 MG TABLET.ER PO PRN (13:51)
[2023-04-08 14:23] VITALS: BP 126/61; PULSE 73
--- NOTE | 2023-04-08 14:23 | P.DS ---
Providers Date of admission: 04/07/23 22:05 Expected date of discharge: 04/08/23 Attending physician: Pablo Pearce Consults: 04/07/23 21:43 Consult Physician Urgent Consulting Provider: [facility] Consult Reason/Comments: CHF, recent cardioversion Do you want consulting provider notified?: Yes, Notify in am Primary care physician: Suraj Pike - Discharge Diagnosis(es) (1) Aortic valve replaced Current Visit: Yes Status: Acute (2) H/O cardiac radiofrequency ablation Current Visit: Yes Status: Acute (3) History of cardioversion Current Visit: Yes Status: Acute (4) Type 2 diabetes mellitus with other specified complication Current Visit: Yes Status: Acute (5) Type 2 diabetes mellitus with other circulatory complications Current Visit: Yes Status: Acute (6) Pneumonia Current Visit: Yes Status: Acute (7) Congestive heart failure Current Visit: Yes Status: Acute Hospital Course: he is s/p cardioversion and CHF as a result. He was found to have pneumonia on CXR after having URI symtoms for the past 2 weeks, he will treated with Laix for 10 dyas for the CHF, abx, steroids and guafensin for the pneumoni. He will f/u with cardiology soon He will f/u with PCP in the next few days Patient Condition at Discharge: Fair Plan - Discharge Summary New Discharge Prescriptions: New Amoxic-Pot Clav 875-125Mg [Augmentin 875-125] 1 each PO Q12HR #10 tab Furosemide [Lasix] 20 mg PO BID@0900,1600 10 Days #20 tab guaiFENesin [Mucinex] 1,200 mg PO Q12HR #20 tab predniSONE 10 mg PO DAILY #30 tab Continue Propafenone [Rythmol] 225 mg PO DAILY tadalafiL 5 mg PO DAILY Multivit-Mins/Iron/Folic/Lycop [Centrum Men's Tablet] 1 tab PO DAILY metFORMIN HCL ER [Glucophage XR] 500 mg PO AC-BID Magnesium Oxide [Magox 400] 400 mg PO DAILY amLODIPine BESYLATE/BENAZEPRIL [Lotrel 5-20 mg Capsule] 1 cap PO HS [place]-3 Acid Ethyl Esters [Lovaza] 2 gm PO BID Aspirin EC [Ecotrin Low Dose] 81 mg PO DAILY Propafenone [Rythmol] 150 mg PO BID@1500,2100 Rivaroxaban [Xarelto] 20 mg PO W/SUPPER Montelukast [Singulair] 10 mg PO HS Metoprolol Tartrate [Lopressor] 25 mg PO BID Lansoprazole [Prevacid] 30 mg PO W/SUPPER Albuterol Inhaler [Ventolin Hfa Inhaler] 1 puff INHALATION RT-Q4H PRN PRN Reason: Shortness Of Breath Discharge Medication List Albuterol Inhaler [Ventolin Hfa Inhaler] 1 puff INHALATION RT-Q4H PRN 04/07/23 [History] Aspirin EC [Ecotrin Low Dose] 81 mg PO DAILY 04/07/23 [History] Lansoprazole [Prevacid] 30 mg PO W/SUPPER 04/07/23 [History] Magnesium Oxide [Magox 400] 400 mg PO DAILY 04/07/23 [History] Metoprolol Tartrate [Lopressor] 25 mg PO BID 04/07/23 [History] Montelukast [Singulair] 10 mg PO HS 04/07/23 [History] Multivit-Mins/Iron/Folic/Lycop [Centrum Men's Tablet] 1 tab PO DAILY 04/07/23 [History] [place]-3 Acid Ethyl Esters [Lovaza] 2 gm PO BID 04/07/23 [History] Propafenone [Rythmol] 150 mg PO BID@1500,2100 04/07/23 [History] Propafenone [Rythmol] 225 mg PO DAILY 04/07/23 [History] Rivaroxaban [Xarelto] 20 mg PO W/SUPPER 04/07/23 [History] amLODIPine BESYLATE/BENAZEPRIL [Lotrel 5-20 mg Capsule] 1 cap PO HS 04/07/23 [History] metFORMIN HCL ER [Glucophage XR] 500 mg PO AC-BID 04/07/23 [History] tadalafiL 5 mg PO DAILY 04/07/23 [History] Amoxic-Pot Clav 875-125Mg [Augmentin 875-125] 1 each PO Q12HR #10 tab 04/08/23 [Rx] Furosemide [Lasix] 20 mg PO BID@0900,1600 10 Days #20 tab 04/08/23 [Rx] guaiFENesin [Mucinex] 1,200 mg PO Q12HR #20 tab 04/08/23 [Rx] predniSONE 10 mg PO DAILY #30 tab 04/08/23 [Rx] Follow up Appointment(s)/Referral(s): Orlando Baird MD [REFERRING] - 1-2 days Suraj Pike Jr, DO [Primary Care Provider] - 1 Week Discharge Disposition: HOME SELF-CARE
[2023-04-08] MEDS ORDERED: AMOXIC-POT CLAV 875-125MG 1 EACH TAB PO SCH (14:30)
[2023-04-08] MEDS ORDERED: predniSONE 10 MG TAB PO SCH (15:00)
--- NOTE | 2023-04-08 15:03 | CA ---
Transthoracic Echo Report Name: Kings Moore Age: 82 Gender: M : 1940 Exam Date: 04/08/2023 12:58 Exam Location: [facility] Ht (in): 72 Wt (lb): 178 Ordering Physician: Lissett Carranza MD ([id number]) Attending/Referring Phys: Machinist Apprentice Monet Waller RDCS Procedure CPT: Indications: chf,avr Cardiac Hx: Technical Quality: Fair Contrast 1: Total Dose (mL): Contrast 2: Total Dose (mL): MEASUREMENTS (Male / Female) Normal Values 2D ECHO LV Diastolic Diameter PLAX 5.4 cm 4.2 - 5.9 / 3.9 - 5.3 cm LV Systolic Diameter PLAX 3.7 cm IVS Diastolic Thickness 1.3 cm 0.6 - 1.0 / 0.6 - 0.9 cm LVPW Diastolic Thickness 1.2 cm 0.6 - 1.0 / 0.6 - 0.9 cm LV Relative Wall Thickness 0.5 RV Internal Dim ED PLAX 4.7 cm LA Volume 98.8 cm??? 18 - 58 / 22 - 52 cm??? LA Volume Index 48.7 cm???/m??? 16 - 28 cm???/m??? M-MODE Aortic Root Diameter MM 3.6 cm LA Systolic Diameter MM 5.1 cm LA Ao Ratio MM 1.4 AV Cusp Separation MM 1.2 cm DOPPLER AV Peak Velocity 211.1 cm/s AV Peak Gradient 17.8 mmHg AV Mean Velocity 134.7 cm/s AV Mean Gradient 8.6 mmHg AV Velocity Time Integral 39.5 cm LVOT Peak Velocity 90.6 cm/s LVOT Peak Gradient 3.3 mmHg LVOT Velocity Time Integral 16.4 cm MV Peak Velocity 142.9 cm/s MV Peak Gradient 8.2 mmHg MV Mean Velocity 71.8 cm/s MV Mean Gradient 2.6 mmHg MV Velocity Time Integral 47.8 cm MV Area PHT 3.6 cm??? Mitral E Point Velocity 128.7 cm/s Mitral A Point Velocity 0.2 cm/s Mitral E to A Ratio 570.3 MV Deceleration Time 212.8 ms MV E' Velocity 6.7 cm/s Mitral E to MV E' Ratio 19.1 TR Peak Velocity 328.3 cm/s TR Peak Gradient 43.1 mmHg Right Ventricular Systolic Press 48.1 mmHg FINDINGS Left Ventricle Mildly increased left ventricular wall thickness. Left ventricular cavity size normal. Left ventricular ejection fraction is estimated at 50-55 %. Right Ventricle Severe right ventricular dilatation. Moderate pulmonary hypertension. Right ventricular systolic pressure estimated at 48 mm hg. Right Atrium Severe right atrial dilatation. Left Atrium Severely increased left atrial volume. Mildly increased left atrial area. Mitral Valve Mitral valve thickened. Moderate mitral annular calcification. Moderate-to- severe mitral regurgitation. Aortic Valve Normally functioning bioprosthetic aortic valve without stenosis with a peak velocity of 2 m/s, peak gradient 18 mmHg, mean gradient 9 mmHg.no aortic regurgitation. Tricuspid Valve Structurally normal tricuspid valve. Moderate tricuspid regurgitation. Pulmonic Valve Structurally normal pulmonic valve. Trace pulmonic regurgitation. Pericardium No pericardial effusion. Aorta Normal size aortic root and proximal ascending aorta. CONCLUSIONS 1. Left ventricular systolic function borderline normal 2. Moderate severe mitral was moderate tricuspid regurgitation and moderate pulmonary hypertension 3. Bioprosthetic aortic valve with normal function and a mean gradient of 9 mmHg. Previewed by: Dr. Lissett Carranza MD (Electronically Signed) Final Date: 08 April 2023 15:02
[2023-04-08] MEDS ORDERED: RIVAROXABAN 20 MG TAB PO SCH (17:30)
[2023-04-08] MEDS ORDERED: lisinopriL 20 MG TAB PO SCH (21:00)
[2023-04-08] MEDS ORDERED: amLODIPine 5 MG TAB PO SCH (21:00)
[2023-04-08] MEDS ORDERED: MONTELUKAST 10 MG TAB PO SCH (21:00)
[2023-04-08] MEDS ORDERED: NON FORMULARY DRUG (Tadalafil [Tadalafil] 5 MG Tablet) PO SCH (21:00)
== END 2023-04-08 14:53 | disposition home or self-care (01) ==
LOC: EC 17:28 → 3SCARD 22:05
PROVIDERS: ADMIT Family Medicine; ATTEND Family Medicine
DX: J18.9 Pneumonia, unspecified organism (principal); I11.0 Hypertensive heart disease with heart failure; I50.9 Heart failure, unspecified; I48.91 Unspecified atrial fibrillation; I25.10 Atherosclerotic heart disease of native coronary artery without angina pectoris; I44.0 Atrioventricular block, first degree; I35.9 Nonrheumatic aortic valve disorder, unspecified; E11.59 Type 2 diabetes mellitus with other circulatory complications; Z79.82 Long term (current) use of aspirin; Z79.01 Long term (current) use of anticoagulants; Z79.84 Long term (current) use of oral hypoglycemic drugs; Z79.899 Other long term (current) drug therapy; Z95.3 Presence of xenogenic heart valve; Z95.1 Presence of aortocoronary bypass graft; Z98.890 Other specified postprocedural states; Z87.01 Personal history of pneumonia (recurrent); Z87.891 Personal history of nicotine dependence
CPT/HCPCS: 96374; 96375; 99285; 36415; 94660; 94760; 93005; 93306; 83880; 80053; 84484; 85025; 85610; 85730; 71046; G0378 ×2; J1940; J0456; J0696

== ENCOUNTER 2023-12-26 16:03 | Inpatient (IN) | payer MEDICARE ==
[2023-12-26 16:43] LABS: Basophils % (A) 1 %; Eosinophils # (A) 0.2 k/uL (0-0.7); Eosinophils % (A) 4 %; HCT 40.8 % (39.0-53.0); HGB 13.5 gm/dL (13.0-17.5); Lymphocytes # (A) 1.2 k/uL (1.0-4.8); Lymphocytes % (A) 19 %; MCH 29.2 pg (25.0-35.0); MCHC 33.1 g/dL (31.0-37.0); Mean Platelet Volume 7.6; Monocytes # (A) 0.5 k/uL (0-1.0); Monocytes % (A) 8 %; Neutrophils % (A) 65 %; Platelet Count 252 k/uL (150-450); RBC 4.64 m/uL (4.30-5.90); RDW 14.4 % (11.5-15.5); WBC 6.1 k/uL (3.8-10.6)
[2023-12-26 16:52] LABS: ALT 15 U/L (4-49); AST 25 U/L (17-59); African American GFR (CKD) >90 (>60 ml/min/1.73 sqM); Albumin 4.4 g/dL (3.5-5.0); Alkaline Phosphatase 45 U/L (38-126); Anion Gap 10 mmol/L; Blood Urea Nitrogen 14 mg/dL (9-20); Calcium 9.2 mg/dL (8.4-10.2); Carbon Dioxide 21 mmol/L (22-30); Chloride 106 mmol/L (98-107); Glucose 128 mg/dL (74-99); Magnesium 1.9 mg/dL (1.6-2.3); Non-African American GFR(CKD) >90 (>60 ml/min/1.73 sqM); Potassium 4.3 mmol/L (3.5-5.1); Sodium 137 mmol/L (137-145); Total Bilirubin 0.5 mg/dL (0.2-1.3); Total Protein 6.9 g/dL (6.3-8.2)
[2023-12-26 16:56] LABS: Partial Thromboplastin Time 26.2 sec (22.0-30.0); Prothrombin Time 11.1 sec (10.0-12.5)
--- NOTE | 2023-12-26 17:05 | XR ---
EXAMINATION TYPE: XR chest 2V DATE OF EXAM: 12/26/2023 COMPARISON: NONE HISTORY: Shortness of breath TECHNIQUE: Frontal and lateral views of the chest are obtained. FINDINGS: Scattered senescent parenchymal changes noted. Hyperinflation compatible with COPD. No evidence for infiltrate. Bibasilar compression atelectasis and/or parenchymal scarring. Heart size is stable. Mediastinal structures are stable and grossly unremarkable. No evidence for hilar prominence. Degenerative changes dorsal spine. IMPRESSION: 1. No evidence for acute pulmonary disease.
--- NOTE | 2023-12-26 17:43 | ED ---
Arrhythmia/Palpitations HPI - General Chief Complaint: Arrhythmia/Palpitations Stated Complaint: Tachycardia Time Seen by Provider: 12/26/23 16:35 Source: patient Mode of arrival: wheelchair Limitations: no limitations - History of Present Illness Initial Comments: 83-year-old male with past medical history of A-fib[facility]. States that he checked his heart rate at home and it was 130. He does have a history of atrial flutter and atrial tachycardia. He had a cardioversion within the past 6 months. He does take metoprolol and Eliquis. He has had a maze procedure and atrial appendage ligation. He continues to have intermittent episodes of the A-fib and a flutter. He assumed that this was his issue today and therefore came into the hospital. He follows with a project analyst in [place]. He denies any changes in his medication. Denies any missed doses. No history of coronary disease. No other alleviating, precipitating or modifying factors - Related Data Home Medications Medication Instructions Recorded Confirmed Albuterol Inhaler [Ventolin Hfa 1 puff INHALATION RT-Q4H PRN 04/07/23 12/26/23 Inhaler] Aspirin EC [Ecotrin Low Dose] 81 mg PO DAILY 04/07/23 12/26/23 Lansoprazole [Prevacid] 30 mg PO W/SUPPER 04/07/23 12/26/23 Magnesium Oxide [Magox 400] 400 mg PO BID-W/MEALS 04/07/23 12/26/23 Metoprolol Tartrate [Lopressor] 50 mg PO BID 04/07/23 12/26/23 Montelukast [Singulair] 5 mg PO HS 04/07/23 12/26/23 Multivit-Mins/Iron/Folic/Lycop 1 tab PO DAILY 04/07/23 12/26/23 [Centrum Men's Tablet] [place]-3 Acid Ethyl Esters [Lovaza] 2 gm PO BID 04/07/23 12/26/23 amLODIPine BESYLATE/BENAZEPRIL 1 cap PO HS 04/07/23 12/26/23 [Lotrel 5-20 mg Capsule] metFORMIN HCL ER [Glucophage XR] 500 mg PO AC-BID 04/07/23 12/26/23 tadalafiL 5 mg PO DAILY 04/07/23 12/26/23 Apixaban [Eliquis] 5 mg PO BID 12/26/23 12/26/23 Tamsulosin [Flomax] 0.4 mg PO DAILY 12/26/23 12/26/23 Allergies Allergy/AdvReac Type Severity Reaction Status Date / Time No Known Allergies Allergy Verified 12/26/23 17:59 Review of Systems ROS Statement: Those systems with pertinent positive or pertinent negative responses have been documented in the HPI. ROS Other: All systems not noted in ROS Statement are negative. Past Medical History Past Medical History: Atrial Fibrillation, Cancer, Pneumonia History of Any Multi-Drug Resistant Organisms: None Reported Past Surgical History: Cholecystectomy, Coronary Bypass/CABG Additional Past Surgical History / Comment(s): cardioversion, valave ,nasal , skin cancer Past Psychological History: Unable to Obtain Smoking Status: Former smoker Past Alcohol Use History: None Reported Past Drug Use History: None Reported General Exam Limitations: no limitations General appearance: alert, in no apparent distress Head exam: Present: atraumatic, normocephalic, normal inspection Eye exam: Present: normal appearance, PERRL, EOMI. Absent: scleral icterus, conjunctival injection, periorbital swelling ENT exam: Present: normal exam, mucous membranes moist Neck exam: Present: normal inspection. Absent: tenderness, meningismus, lymphadenopathy Respiratory exam: Present: normal lung sounds bilaterally. Absent: respiratory distress, wheezes, rales, rhonchi, stridor Cardiovascular Exam: Present: normal rhythm, tachycardia, normal heart sounds. Absent: systolic murmur, diastolic murmur, rubs, gallop, clicks GI/Abdominal exam: Present: soft, normal bowel sounds. Absent: distended, tenderness, guarding, rebound, rigid Extremities exam: Present: normal inspection, full ROM, normal capillary refill. Absent: tenderness, pedal edema, joint swelling, calf tenderness Back exam: Present: normal inspection Neurological exam: Present: alert, oriented X3, CN II-XII intact Psychiatric exam: Present: normal affect, normal mood Skin exam: Present: warm, dry, intact, normal color. Absent: rash Course Vital Signs 12/26/23 12/26/23 12/26/23 16:06 16:36 17:20 Temperature 97.4 F L Pulse Rate 121 H 116 H 117 H Respiratory 22 19 18 Rate Blood Pressure 114/71 165/109 137/99 O2 Sat by Pulse 98 96 96 Oximetry 12/26/23 12/26/23 12/26/23 18:00 18:30 19:37 Temperature Pulse Rate 117 H 111 H 87 Respiratory 16 16 17 Rate Blood Pressure 133/98 116/84 125/82 O2 Sat by Pulse 96 95 96 Oximetry Medical Decision Making - Medical Decision Making Was pt. sent in by a medical professional or institution (, PA, COMPRESSOR SERVICE TECHNICIAN, urgent care, hospital, or senior care...) When possible be specific @ -No Did you speak to anyone other than the patient for history (EMS, parent, family, police, friend...)? What history was obtained from this source @ -No Did you review nursing and triage notes (agree or disagree)? Why? @ -I reviewed and agree with nursing and triage notes Were old charts reviewed (outside hosp., previous admission, EMS record, old EKG , old radiological studies, urgent care reports/EKG's, senior care records)? Report findings @ -No old charts were reviewed Differential Diagnosis (chest pain, altered mental status, abdominal pain women, abdominal pain men, vaginal bleeding, weakness, fever, dyspnea, syncope, headache, dizziness, GI bleed, back pain, seizure, CVA, palpatations, mental health, musculoskeletal)? @ -Differential Palpitations Ventricular arrhythmias, atrial arrhythmias, myocardial infarction, anemia, thyrotoxicosis, electrolyte imbalance, hypokalemia, pulmonary embolism, pulmonary disease, drugs, alcohol, anxiety, stress.... This is not meant to be an all-inclusive list. EKG interpreted by me (3pts min.). @ -Yes and demonstrates a regular tachycardia with a rate of 121. QRS 145. QTc of 433. Left bundle branch block which was seen on patient's previous EKGs. No identifiable P waves Repeat EKG done at 1934 demonstrates what appears to be an atrial tachycardia with a 4-1 block. Rate of 80. MD interval 261. QRS 170. QTc of 467. X-rays interpreted by me (1pt min.). @ -yes and demonstrates no acute process CT interpreted by me (1pt min.). @ -None done U/S interpreted by me (1pt. min.). @ -None done What testing was considered but not performed or refused? (CT, X-rays, U/S, labs)? Why? @ -None What meds were considered but not given or refused? Why? @ -None Did you discuss the management of the patient with other professionals (professionals i.e. , PA, COMPRESSOR SERVICE TECHNICIAN, lab, RT, psych nurse, social sciences lecturer, licensing and registration director, teacher, environmental officer, case manager specialist)? Give summary @ -Spoke with Dr. Pike who agreed to admit the patient overnight Was smoking cessation discussed for >3mins.? @ -No Was critical care preformed (if so, how long)? @ -Yes, 35 minutes for Cardizem drip management Were there social determinants of health that impacted care today? How? (Homelessness, low income, unemployed, alcoholism, drug addiction, transportation, low edu. Level, literacy, decrease access to med. care, long term, rehab)? @ -No Was there de-escalation of care discussed even if they declined (Discuss DNR or withdrawal of care, Hospice)? DNR status @ -No What co-morbidities impacted this encounter? (DM, HTN, Smoking, COPD, CAD, Cancer, CVA, ARF, Chemo, Hep., AIDS, mental health diagnosis, sleep apnea, morbid obesity)? @ -Atrial fibs and atrial flutter Was patient admitted / discharged? Hospital course, mention meds given and route, prescriptions, significant lab abnormalities, going to OR and other pertinent info. @ -On arrival patient seen and evaluated in room 15. Thorough history and phys ical exam was performed. Patient does have elevated heart rate. EKG demonstrates a tachycardia without identifiable P waves. Rhythm appears regular. Laboratory studies are conducted. Patient is started on a Cardizem drip which does slow his heart rate enough to obtain a new EKG. Appears to be an atrial tachycardia with a rate of 300. Ventricular rate of 75. Appears to be a 4-1 block. I did speak with Dr. Pike in regards to opting the patient overnight. He was agreeable to this. Patient is awaiting a bed in stable condition Undiagnosed new problem with uncertain prognosis? @ -No Drug Therapy requiring intensive monitoring for toxicity (Heparin, Nitro, Insulin, Cardizem)? @Cardizem Were any procedures done? @ -No Diagnosis/symptom? @ -Acute palpitations, acute atrial tachycardia with variable block Acute, or Chronic, or Acute on Chronic? @ -Acute Uncomplicated (without systemic symptoms) or Complicated (systemic symptoms)? @ -complicated Side effects of treatment? @ -No Exacerbation, Progression, or Severe Exacerbation? @ -No Poses a threat to life or bodily function? How? (Chest pain, [place], [place], pneumonia, PE, COPD, DKA, ARF, appy, cholecystitis, CVA, Diverticulitis, Homicidal, Suicidal, threat to staff... and all critical care pts) @ -No - Lab Data Result diagrams: 12/26/23 16:11 12/26/23 16:11 Lab Results 12/26/23 12/26/23 12/26/23 Range/Units 16:11 16:11 16:11 WBC 6.1 (3.8-10.6) k/uL RBC 4.64 (4.30-5.90) m/uL Hgb 13.5 (13.0-17.5) gm/dL Hct 40.8 (39.0-53.0) % MCV 88.0 (80.0-100.0) fL MCH 29.2 (25.0-35.0) pg MCHC 33.1 (31.0-37.0) g/dL RDW 14.4 (11.5-15.5) % Plt Count 252 (150-450) k/uL MPV 7.6 Neutrophils % 65 % Lymphocytes % 19 % Monocytes % 8 % Eosinophils % 4 % Basophils % 1 % Neutrophils # 4.0 (1.3-7.7) k/uL Lymphocytes # 1.2 (1.0-4.8) k/uL Monocytes # 0.5 (0-1.0) k/uL Eosinophils # 0.2 (0-0.7) k/uL Basophils # 0.0 (0-0.2) k/uL PT 11.1 (10.0-12.5) sec INR 1.0 (<1.2) APTT 26.2 (22.0-30.0) sec Sodium 137 (137-145) mmol/L Potassium 4.3 (3.5-5.1) mmol/L Chloride 106 (98-107) mmol/L Carbon Dioxide 21 L (22-30) mmol/L Anion Gap 10 mmol/L BUN 14 (9-20) mg/dL Creatinine 0.56 L (0.66-1.25) mg/dL Est GFR (CKD-EPI)AfAm >90 (>60 ml/min/1.73 sqM) Est GFR (CKD-EPI)NonAf >90 (>60 ml/min/1.73 sqM) Glucose 128 H (74-99) mg/dL Calcium 9.2 (8.4-10.2) mg/dL Magnesium 1.9 (1.6-2.3) mg/dL Total Bilirubin 0.5 (0.2-1.3) mg/dL AST 25 (17-59) U/L ALT 15 (4-49) U/L Alkaline Phosphatase 45 (38-126) U/L Troponin I (0.000-0.034) ng/mL Total Protein 6.9 (6.3-8.2) g/dL Albumin 4.4 (3.5-5.0) g/dL TSH (0.465-4.680) mIU/L 12/26/23 12/26/23 Range/Units 16:11 19:14 WBC (3.8-10.6) k/uL RBC (4.30-5.90) m/uL Hgb (13.0-17.5) gm/dL Hct (39.0-53.0) % MCV (80.0-100.0) fL MCH (25.0-35.0) pg MCHC (31.0-37.0) g/dL RDW (11.5-15.5) % Plt Count (150-450) k/uL MPV Neutrophils % % Lymphocytes % % Monocytes % % Eosinophils % % Basophils % % Neutrophils # (1.3-7.7) k/uL Lymphocytes # (1.0-4.8) k/uL Monocytes # (0-1.0) k/uL Eosinophils # (0-0.7) k/uL Basophils # (0-0.2) k/uL PT (10.0-12.5) sec INR (<1.2) APTT (22.0-30.0) sec Sodium (137-145) mmol/L Potassium (3.5-5.1) mmol/L Chloride (98-107) mmol/L Carbon Dioxide (22-30) mmol/L Anion Gap mmol/L BUN (9-20) mg/dL Creatinine (0.66-1.25) mg/dL Est GFR (CKD-EPI)AfAm (>60 ml/min/1.73 sqM) Est GFR (CKD-EPI)NonAf (>60 ml/min/1.73 sqM) Glucose (74-99) mg/dL Calcium (8.4-10.2) mg/dL Magnesium (1.6-2.3) mg/dL Total Bilirubin (0.2-1.3) mg/dL AST (17-59) U/L ALT (4-49) U/L Alkaline Phosphatase (38-126) U/L Troponin I <0.012 (0.000-0.034) ng/mL Total Protein (6.3-8.2) g/dL Albumin (3.5-5.0) g/dL TSH 1.860 (0.465-4.680) mIU/L Disposition Clinical Impression: Atrial flutter, History of cardioversion Disposition: ADMITTED IP TO THIS [facility] Condition: Stable Is patient prescribed a controlled substance at d/c from ED?: No Referrals: Suraj Pike Jr, [Primary Care Provider] - 1-2 days Time of Disposition: 20:51 Decision to Admit Reason: Admit from EC Decision Date: 12/26/23 Decision Time: 20:51
[2023-12-26] MEDS: DILTIAZEM 125 MG in SODIUM CHLORIDE 0.9% 100 ML IV SCH (18:10)
[2023-12-26] MEDS: MAGNESIUM SULFATE-D5W PMX 1 GM in DEXTROSE/WATER 1 100ML.BAG IVPB SCH (18:11)
[2023-12-26] MEDS ORDERED: NALOXONE 0.4 MG/ML 1 ML VIAL IV PRN (20:52)
[2023-12-26] MEDS ORDERED: ALBUTEROL HFA INHALER INHALATION PRN (21:03)
[2023-12-26] MEDS: MONTELUKAST 5 MG CHEWABLE PO SCH (21:41)
[2023-12-26] MEDS: PANTOPRAZOLE 40 MG TABLET PO SCH (21:41)
[2023-12-26] MEDS: APIXABAN 5 MG TAB PO SCH (21:41)
[2023-12-26] MEDS: metFORMIN 500 MG TAB PO SCH (21:42)
[2023-12-27 06:01] LABS: Glucose,Whole Blood 104 mg/dL (70-110)
[2023-12-27] MEDS: MAGNESIUM OXIDE 400 MG TAB PO SCH (06:21)
[2023-12-27] MEDS: NON FORMULARY DRUG (Tadalafil [Tadalafil] 5 MG Tablet) PO SCH (08:57)
[2023-12-27] MEDS: TAMSULOSIN 0.4 MG CAP.ER.24H PO SCH (08:57)
[2023-12-27 08:58] LABS: Basophils % (A) 0 %; Eosinophils # (A) 0.3 k/uL (0-0.7); Eosinophils % (A) 4 %; HCT 41.6 % (39.0-53.0); HGB 13.5 gm/dL (13.0-17.5); Hypochromasia Slight; Lymphocytes # (A) 0.9 k/uL (1.0-4.8); Lymphocytes % (A) 16 %; MCH 29.4 pg (25.0-35.0); MCHC 32.5 g/dL (31.0-37.0); MCV 90.3 fL (80.0-100.0); Mean Platelet Volume 8.3; Monocytes # (A) 0.7 k/uL (0-1.0); Monocytes % (A) 11 %; Neutrophils % (A) 67 %; Platelet Count 232 k/uL (150-450); RBC 4.61 m/uL (4.30-5.90); RDW 14.5 % (11.5-15.5); WBC 6.1 k/uL (3.8-10.6)
[2023-12-27] MEDS ORDERED: NON FORMULARY DRUG (Omega-3 Acid Ethyl Esters [Lovaza] 1 GM Capsule) PO SCH (09:00)
[2023-12-27] MEDS: ASPIRIN 81 MG PO SCH (09:01)
[2023-12-27] MEDS: MULTIVITAMINS, THERA 1 EACH TAB PO SCH (09:01)
[2023-12-27 09:11] LABS: African American GFR (CKD) >90 (>60 ml/min/1.73 sqM); Anion Gap 6 mmol/L; Blood Urea Nitrogen 12 mg/dL (9-20); Calcium 9.1 mg/dL (8.4-10.2); Carbon Dioxide 26 mmol/L (22-30); Chloride 108 mmol/L (98-107); Glucose 116 mg/dL (74-99); Non-African American GFR(CKD) >90 (>60 ml/min/1.73 sqM); Potassium 4.1 mmol/L (3.5-5.1); Sodium 140 mmol/L (137-145)
[2023-12-27] MEDS ORDERED: METOPROLOL TARTRATE 50 MG TAB PO SCH (10:15)
[2023-12-27] MEDS ORDERED: DEXTROSE 50% SYRINGE 50 ML IVP PRN ×2 (10:20)
[2023-12-27] MEDS ORDERED: DEXTROSE 5% IN WATER 100 ML with AMIODARONE 150 MG IV ONE (10:30)
[2023-12-27] MEDS ORDERED: AMIODARONE 360 MG in DEXTROSE 5% IN WATER 200 ML IV ONE (10:40)
[2023-12-27] MEDS: METOPROLOL TARTRATE 25 MG TAB PO SCH (11:30)
[2023-12-27 11:40] LABS: Glucose,Whole Blood 110 mg/dL (70-110)
[2023-12-27] MEDS: INSULIN ASPART (NovoLOG) 100 UNIT/ML VIAL SQ SCH (12:14)
--- NOTE | 2023-12-27 13:21 | P.CRDCN ---
History of Present Illness History of present illness: HISTORY OF PRESENT ILLNESS: This is a 83-year-old male with a past medical history significant for atrial fibrillation/flutter, cardioversion, ablation, and aortic valve replacement at [facility]. Patient follows with Dr. Baird. We have been asked to see the patient in consultation for tachycardia. Patient examined at the bedside. Patient states that he checked his heart rate at home yesterday and was found to be 130. He presented to hospital for further evaluation. Patient was found to be in a flutter with RVR. He is currently on IV Cardizem at 10 mg an hour. He remains in atrial flutter with a heart rate in the 120s. He denies any chest pain or pressure. Denies any shortness of breath. Patient states he had an aortic valve replacement approximately 9 years ago with an Elias bovine valve. He also reports a history of 3 ablations and multiple cardioversions in the past. He also reports a history of a Maze procedure performed at [facility]. He denies a history of cardiomyopathy and states his last ejection fraction was around 55%. DIAGNOSTICS: - EKG reveals a flutter with RVR - Chest xray negative for acute process - Current home cardiac medications include Eliquis 5 mg twice a day, aspirin 81 mg daily, metoprolol tartrate 50 mg twice a day, amlodipine-benazepril 5-20 mg at night REVIEW OF SYSTEMS: At the time of my exam: CONSTITUTIONAL: Denies fever or chills. HEENT: Denies blurred vision, vision changes, or eye pain. Denies hemoptysis CARDIOVASCULAR: Denies chest pain. Denies orthopnea. Denies PND. Denies palpitations RESPIRATORY: Denies shortness of breath. GASTROINTESTINAL: Denies abdominal pain. Denies nausea or vomiting. HEMATOLOGIC: Denies bleeding disorders. GENITOURINARY: Denies any blood in urine. SKIN: Denies pruitis. Denies rash. PHYSICAL EXAM: VITAL SIGNS: Reviewed. GENERAL: Well-developed in no acute distress. HEENT: Head is normocephalic. Pupils are equal, round. Sclerae anicteric. Mucous membranes of the mouth are moist. Neck supple. No JVD or thyromegaly LUNGS: Respirations even and unlabored. Lungs essentially clear to auscultation bilaterally. HEART: Tachycardic. Regular rate and rhythm. S1 and S2 heard. ABDOMEN: Soft. Nondistended. Nontender. EXTREMITIES: Normal range of motion. No clubbing or cyanosis. Peripheral pulses intact. No lower extremity edema NEUROLOGIC: Awake and alert. Oriented x 3. ASSESSMENT: Typical atrial flutter with RVR History of paroxysmal atrial fibrillation/flutter History of multiple cardioversions and ablations per patient History of bioprosthetic aortic valve replacement Hypertension PLAN: Obtain 2D echo to assess cardiac structure and function Resume home cardiac medications Increase metoprolol to tartrate to 75 mg twice a day Continue IV Cardizem. Wean as heart rate will tolerate Continue anticoagulation with Eliquis. Recommend IV amiodarone infusion. Patient is declining at this time as he states he was on amiodarone in the past and does not want to take it again N.p.o. at midnight Patient undergo cardioversion tomorrow with Dr. Lewis Further recommendations pending patient course Nurse practitioner note has been reviewed by physician. Signing provider agrees with the documented findings, assessment, and plan of care documented by ENGINEERING DIRECTOR as a scribe. Past Medical History Past Medical History: Atrial Fibrillation, Atrial Flutter, Asthma, Cancer, Diabetes Mellitus, Pneumonia, Prostate Disorder Additional Past Medical History / Comment(s): skin CA, prediabetic A1C-5.9 History of Any Multi-Drug Resistant Organisms: None Reported Past Surgical History: Ablation, Cholecystectomy, Coronary Bypass/CABG Additional Past Surgical History / Comment(s): cardioversion, Aortic valave elias bovine, [facility] procedure[facility], 3 cardiac ablations, Rhinoplasty Past Anesthesia/Blood Transfusion Reactions: No Reported Reaction Smoking Status: Former smoker - Past Family History Father Family Medical History: Hypertension Medications and Allergies Home Medications Medication Instructions Recorded Confirmed Type Albuterol Inhaler [Ventolin Hfa 1 puff INHALATION RT-Q4H PRN 04/07/23 12/26/23 History Inhaler] Aspirin EC [Ecotrin Low Dose] 81 mg PO DAILY 04/07/23 12/26/23 History Lansoprazole [Prevacid] 30 mg PO W/SUPPER 04/07/23 12/26/23 History Magnesium Oxide [Magox 400] 400 mg PO BID-W/MEALS 04/07/23 12/26/23 History Metoprolol Tartrate [Lopressor] 50 mg PO BID 04/07/23 12/26/23 History Montelukast [Singulair] 5 mg PO HS 04/07/23 12/26/23 History Multivit-Mins/Iron/Folic/Lycop 1 tab PO DAILY 04/07/23 12/26/23 History [Centrum Men's Tablet] [place]-3 Acid Ethyl Esters [Lovaza] 2 gm PO BID 04/07/23 12/26/23 History amLODIPine BESYLATE/BENAZEPRIL 1 cap PO HS 04/07/23 12/26/23 History [Lotrel 5-20 mg Capsule] metFORMIN HCL ER [Glucophage XR] 500 mg PO AC-BID 04/07/23 12/26/23 History tadalafiL 5 mg PO DAILY 04/07/23 12/26/23 History Apixaban [Eliquis] 5 mg PO BID 12/26/23 12/26/23 History Tamsulosin [Flomax] 0.4 mg PO DAILY 12/26/23 12/26/23 History Allergies Allergy/AdvReac Type Severity Reaction Status Date / Time No Known Allergies Allergy Verified 12/26/23 17:59 Physical Exam Vitals: Vital Signs Temp Pulse Pulse Resp BP BP Pulse Ox 12/27/23 08:00 97.5 F L 131 H 18 119/87 97 12/27/23 04:00 97.6 F 54 L 16 142/74 96 12/27/23 00:00 97.4 F L 86 14 127/69 97 12/26/23 22:47 96.2 F L 121 H 14 121/70 97 12/26/23 21:57 97.7 F 84 17 126/73 96 12/26/23 19:37 87 17 125/82 96 12/26/23 18:30 111 H 16 116/84 95 12/26/23 18:00 117 H 16 133/98 96 12/26/23 17:20 117 H 18 137/99 96 12/26/23 16:36 116 H 19 165/109 96 12/26/23 16:06 97.4 F L 121 H 22 114/71 98 Intake and Output 12/26/23 12/27/23 12/27/23 22:59 06:59 14:59 Intake Total 74.25 Balance 74.25 Intake: Intake, IV Titration 74.25 Amount Diltiazem 125 mg In 74.25 Sodium Chloride 0.9% 100 ml @ 5 MG/HR 5 mls/hr IV .Q24H [facility] Rx#:[id number] Other: Voiding Method Toilet # Voids 2 1 Weight 78.018 kg 79.1 kg Results 12/27/23 08:38 12/27/23 08:38 Cardiac Enzymes 12/26/23 12/26/23 Range/Units 16:11 16:11 AST 25 (17-59) U/L Troponin I <0.012 (0.000-0.034) ng/mL Coagulation 12/26/23 Range/Units 16:11 PT 11.1 (10.0-12.5) sec APTT 26.2 (22.0-30.0) sec CBC 12/26/23 12/27/23 Range/Units 16:11 08:38 WBC 6.1 6.1 (3.8-10.6) k/uL RBC 4.64 4.61 (4.30-5.90) m/uL Hgb 13.5 13.5 (13.0-17.5) gm/dL Hct 40.8 41.6 (39.0-53.0) % Plt Count 252 232 (150-450) k/uL Comprehensive Metabolic Panel 12/26/23 12/27/23 Range/Units 16:11 08:38 Sodium 137 140 (137-145) mmol/L Potassium 4.3 4.1 (3.5-5.1) mmol/L Chloride 106 108 H (98-107) mmol/L Carbon Dioxide 21 L 26 (22-30) mmol/L BUN 14 12 (9-20) mg/dL Creatinine 0.56 L 0.59 L (0.66-1.25) mg/dL Glucose 128 H 116 H (74-99) mg/dL Calcium 9.2 9.1 (8.4-10.2) mg/dL AST 25 (17-59) U/L ALT 15 (4-49) U/L Alkaline Phosphatase 45 (38-126) U/L Total Protein 6.9 (6.3-8.2) g/dL Albumin 4.4 (3.5-5.0) g/dL Current Medications Generic Name Dose Route Start Last Admin Trade Name Freq PRN Reason Stop Dose Admin Albuterol Sulfate 1 puff 12/26/23 21:03 Albuterol Hfa Inhaler INHALATION RT-Q4H PRN Shortness Of Breath Apixaban 5 mg 12/26/23 21:30 12/27/23 06:21 Apixaban 5 Mg Tab PO 5 mg BID RUBEN Administration Protocol Aspirin 81 mg 12/27/23 09:00 12/27/23 09:01 Aspirin 81 Mg PO 81 mg DAILY RUBEN Administration Diltiazem HCl 125 mg/ Sodium 125 mls @ 5 mls/hr 12/26/23 17:45 12/27/23 09:01 Chloride IV 10 mg/hr .Q24H RUBEN 10 mls/hr Infusion 5 MG/HR Magnesium Oxide 400 mg 12/27/23 07:30 12/27/23 06:21 Magnesium Oxide 400 Mg Tab PO 400 mg BID-W/MEALS RUBEN Administration Metformin HCl 500 mg 12/26/23 22:00 12/27/23 06:21 Metformin 500 Mg Tab PO 500 mg AC-BID RUBEN Administration Montelukast Sodium 5 mg 12/26/23 21:15 12/26/23 21:41 Montelukast 5 Mg Chewable PO Not Given HS RUBEN Multivitamins 1 each 12/27/23 09:00 12/27/23 09:01 Multivitamins, Thera 1 Each Tab PO 1 each DAILY [facility] Administration Naloxone HCl 0.2 mg 12/26/23 20:52 Naloxone 0.4 Mg/Ml 1 Ml Vial IV Q2M PRN Opioid Reversal Non-Formulary Medication 5 mg 12/27/23 09:00 12/27/23 08:57 Tadalafil [Tadalafil] PO Not Given DAILY RUBEN Pantoprazole Sodium 40 mg 12/26/23 21:15 12/26/23 21:41 Pantoprazole 40 Mg Tablet PO Not Given W/SUPPER RUBEN Tamsulosin HCl 0.4 mg 12/27/23 09:00 12/27/23 08:57 Tamsulosin 0.4 Mg Cap.Er.24h PO Not Given DAILY RUBEN Intake and Output 12/26/23 12/27/23 12/27/23 22:59 06:59 14:59 Intake Total 74.25 Balance 74.25 Intake: Intake, IV Titration 74.25 Amount Diltiazem 125 mg In 74.25 Sodium Chloride 0.9% 100 ml @ 5 MG/HR 5 mls/hr IV .Q24H [facility] Rx#:[id number] Other: Voiding Method Toilet # Voids 2 1 Weight 78.018 kg 79.1 kg 12/27/23 08:38 12/27/23 08:38
[2023-12-27] MEDS: SODIUM CHLORIDE 0.9% 1,000 ML IV SCH (14:55)
--- NOTE | 2023-12-27 15:42 | P.HPIM ---
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 Reported his heart rate was 122 at home. Reports compliant with his home medication regimen including metoprolol and Eliquis.EKG reporting atrial flutter with RVR.Chest x-ray reported no evidence for acute pulmonary disease.Afebrile, normal WBC, hematology, coagulation and chemistry panels unremarkable; sodium 140, potassium 4.1, magnesium 1.9, renal function stable, TSH 1.860. blood sugars controlled. Maintained on IV Cardizem, metoprolol. Anticoagulated on Eliquis. Cardiology consult in place. Review of Systems ROS Statement: Those systems with pertinent positive or pertinent negative responses have been documented in the HPI. ROS Other: All systems not noted in ROS Statement are negative. Past Medical History Past Medical History: Atrial Fibrillation, Atrial Flutter, Asthma, Cancer, Diabetes Mellitus, Pneumonia, Prostate Disorder Additional Past Medical History / Comment(s): skin CA, prediabetic A1C-5.9 History of Any Multi-Drug Resistant Organisms: None Reported Past Surgical History: Ablation, Cholecystectomy, Coronary Bypass/CABG Additional Past Surgical History / Comment(s): cardioversion, Aortic valave baxter bovine, maze procedure,ligated atrium all in 2015 at [facility], Dr. Garcia. skin cancer, 3 cardiac ablations, Rhinoplasty Past Anesthesia/Blood Transfusion Reactions: No Reported Reaction Smoking Status: Former smoker - Past Family History Father Family Medical History: Hypertension Medications and Allergies Home Medications Medication Instructions Recorded Confirmed Type Albuterol Inhaler [Ventolin Hfa 1 puff INHALATION RT-Q4H PRN 04/07/23 12/26/23 History Inhaler] Aspirin EC [Ecotrin Low Dose] 81 mg PO DAILY 04/07/23 12/26/23 History Lansoprazole [Prevacid] 30 mg PO W/SUPPER 04/07/23 12/26/23 History Magnesium Oxide [Magox 400] 400 mg PO BID-W/MEALS 04/07/23 12/26/23 History Metoprolol Tartrate [Lopressor] 50 mg PO BID 04/07/23 12/26/23 History Montelukast [Singulair] 5 mg PO HS 04/07/23 12/26/23 History Multivit-Mins/Iron/Folic/Lycop 1 tab PO DAILY 04/07/23 12/26/23 History [Centrum Men's Tablet] Willard-3 Acid Ethyl Esters [Lovaza] 2 gm PO BID 04/07/23 12/26/23 History amLODIPine BESYLATE/BENAZEPRIL 1 cap PO HS 04/07/23 12/26/23 History [Lotrel 5-20 mg Capsule] metFORMIN HCL ER [Glucophage XR] 500 mg PO AC-BID 04/07/23 12/26/23 History tadalafiL 5 mg PO DAILY 04/07/23 12/26/23 History Apixaban [Eliquis] 5 mg PO BID 12/26/23 12/26/23 History Tamsulosin [Flomax] 0.4 mg PO DAILY 12/26/23 12/26/23 History Allergies Allergy/AdvReac Type Severity Reaction Status Date / Time No Known Allergies Allergy Verified 12/26/23 17:59 Physical Exam Vitals: Vital Signs Temp Pulse Pulse Resp BP BP Pulse Ox 12/27/23 08:00 97.5 F L 131 H 18 119/87 97 12/27/23 04:00 97.6 F 54 L 16 142/74 96 12/27/23 00:00 97.4 F L 86 14 127/69 97 12/26/23 22:47 96.2 F L 121 H 14 121/70 97 12/26/23 21:57 97.7 F 84 17 126/73 96 12/26/23 19:37 87 17 125/82 96 12/26/23 18:30 111 H 16 116/84 95 12/26/23 18:00 117 H 16 133/98 96 12/26/23 17:20 117 H 18 137/99 96 12/26/23 16:36 116 H 19 165/109 96 12/26/23 16:06 97.4 F L 121 H 22 114/71 98 Intake and Output 12/26/23 12/27/23 12/27/23 22:59 06:59 14:59 Intake Total 74.25 Balance 74.25 Intake: Intake, IV Titration 74.25 Amount Diltiazem 125 mg In 74.25 Sodium Chloride 0.9% 100 ml @ 5 MG/HR 5 mls/hr IV .Q24H [facility] Rx#:[id number] Other: Voiding Method Toilet # Voids 2 1 Weight 78.018 kg 79.1 kg GENERAL: Well-appearing, well-nourished, alert and oriented x 3,no acute distress. HEAD: atraumatic, normocephalic. EYES: Pupils equal round and reactive to light, extraocular movements intact, sclera anicteric, conjunctiva are normal. ENT:nares patent, oropharynx clear without exudates. Moist mucous membranes. NECK: Supple , no JVD ,without lymphadenopathy LUNGS: Unlabored, equal air entry , coarse with occasional scattered rhonchi HEART: S1-S2, regular rhythm, tachycardic . ABDOMEN: Soft, nontender, nondistended, normoactive bowel sounds. No guarding, no rebound. No masses appreciated. EXTREMITIES: Normal range of motion, no pitting or edema. No clubbing or cyanosis. NEUROLOGICAL: Cranial nerves II through XII grossly intact. Strength and sensation grossly intact. PSYCH: Normal mood, normal affect. SKIN: Warm, Dry, normal turgor, no rashes or lesions noted. Results CBC & Chem 7: 12/27/23 08:38 12/27/23 08:38 Labs: Abnormal Lab Results - Last 24 Hours (Table) 12/26/23 12/27/23 12/27/23 Range/Units 16:11 08:38 08:38 Lymphocytes # 0.9 L (1.0-4.8) k/uL Chloride 108 H (98-107) mmol/L Carbon Dioxide 21 L (22-30) mmol/L Creatinine 0.56 L 0.59 L (0.66-1.25) mg/dL Glucose 128 H 116 H (74-99) mg/dL Thrombosis Risk Factor Assmnt - Choose All That Apply Any of the Below Risk Factors Present?: No Other Risk Factors: Yes Each Risk Factor Represents 3 Points: Age 75 years or older Other congenital or acquired thrombophilia - If yes, enter type in comment: No Thrombosis Risk Factor Assessment Total Risk Factor Score: 3 Thrombosis Risk Factor Assessment Level: Moderate Risk Assessment and Plan Assessment: Atrial flutter with RVR Chronic paroxysmal atrial fibrillation status post multiple cardioversions, ablations, anticoagulated on Eliquis History of bioprosthetic aortic valve replacement CAD Hypertension Diabetes mellitus II Plan: Continue on current medication resume ,monitoring and symptomatic treatment. Echo pending. Evaluated by cardiology and patient is scheduled for cardioversion tomorrow. Antiarrhythmics as per cardiology; currently on Cardizem drip and increased beta-fito dose. The impression and plan of care has been dictated as directed. : I performed a history and examination of this patient, discussed the same with the dictator. I agree with the dictator's note ,documented as a scribe. Any additional findings or plans will be noted.
[2023-12-27 16:39] LABS: Glucose,Whole Blood 101 mg/dL (70-110)
[2023-12-27] MEDS ORDERED: AMIODARONE 450 MG in DEXTROSE 5% IN WATER 250 ML IV SCH (16:40)
--- NOTE | 2023-12-27 17:47 | CA ---
Transthoracic Echo Report Name: Kings Moore Age: 83 Gender: M : 1940 Exam Date: 12/27/2023 14:48 Exam Location: [place] Echo Ht (in): 72 Wt (lb): 174 Ordering Physician: Leonela Jean Attending/Referring Phys: [id number], Miranda Risk Management Intern Jaquelin Pulido RDCS Procedure CPT: Indications: LV function Cardiac Hx: HX of AVR, Maze procedure, 3 ablations, LAAL Technical Quality: Good Contrast 1: Total Dose (mL): Contrast 2: Total Dose (mL): MEASUREMENTS (Male / Female) Normal Values 2D ECHO LV Diastolic Diameter PLAX 5.6 cm 4.2 - 5.9 / 3.9 - 5.3 cm LV Systolic Diameter PLAX 4.1 cm IVS Diastolic Thickness 1.5 cm 0.6 - 1.0 / 0.6 - 0.9 cm LVPW Diastolic Thickness 1.1 cm 0.6 - 1.0 / 0.6 - 0.9 cm LV Relative Wall Thickness 0.5 LVOT Diameter 2.2 cm LV Diastolic Volume MOD BP 166.8 cm??? 67 - 155 / 56 - 104 cm??? LV Systolic Volume MOD BP 89.5 cm??? 22 - 58 / 19 - 49 cm??? LV Ejection Fraction MOD BP 46.3 % >= 55 % LV Cardiac Index MOD BP 2390.8 cm???/min???m??? LV Diastolic Volume MOD 4C 169.3 cm??? LV Systolic Volume MOD 4C 97.7 cm??? LV Ejection Fraction MOD 4C 42.3 % LV Cardiac Index MOD 4C 2212.6 cm???/min???m??? LV Diastolic Length 4C 9.8 cm LV Systolic Length 4C 8.9 cm LV Diastolic Volume MOD 2C 156.5 cm??? LV Systolic Volume MOD 2C 72.9 cm??? LV Ejection Fraction MOD 2C 53.4 % LV Cardiac Index MOD 2C 2585.8 cm???/min???m??? LV Diastolic Length 2C 9.3 cm LV Systolic Length 2C 7.8 cm LA Volume 87.9 cm??? 18 - 58 / 22 - 52 cm??? LA Volume Index 43.9 cm???/m??? 16 - 28 cm???/m??? Ascending Aorta Diameter 3.6 cm DOPPLER AV Peak Velocity 179.1 cm/s AV Peak Gradient 12.8 mmHg AV Mean Velocity 131.6 cm/s AV Mean Gradient 7.5 mmHg AV Velocity Time Integral 35.2 cm LVOT Peak Velocity 91.6 cm/s LVOT Peak Gradient 3.4 mmHg LVOT Velocity Time Integral 17.0 cm LVOT Stroke Volume 67.4 cm??? LVOT Stroke Volume Index 33.6 ml/m??? LVOT Cardiac Index 2085.1 cm???/min???m??? AV Area Cont Eq vti 1.9 cm??? AV Area Cont Eq pk 2.0 cm??? MV Peak Velocity 119.2 cm/s MV Peak Gradient 5.7 mmHg MV Mean Velocity 69.5 cm/s MV Mean Gradient 2.3 mmHg MV Velocity Time Integral 35.6 cm MV Area PHT 3.9 cm??? MR Flow Rate PISA 80.8 cm???/s Mitral E Point Velocity 96.2 cm/s Mitral A Point Velocity 29.2 cm/s Mitral E to A Ratio 3.3 MV Deceleration Time 196.3 ms TR Peak Velocity 261.2 cm/s TR Peak Gradient 27.3 mmHg Right Atrial Pressure 5.0 mmHg Pulmonary Artery Systolic Pressu 32.3 mmHg Right Ventricular Systolic Press 32.3 mmHg PV Peak Velocity 72.3 cm/s PV Peak Gradient 2.1 mmHg FINDINGS Left Ventricle Left ventricular ejection fraction is estimated at 40-45 %. Moderately increased septal wall thickness. Mildly increased left ventricular diastolic volume. Severely increased left ventricular systolic volume. Mildly decreased left ventricular ejection fraction w Right Ventricle Right ventricular dilatation with mildly reduced function. Right ventricular systolic pressure within normal limits. Right Atrium Severe right atrial dilatation. Left Atrium Severely increased left atrial volume. Mildly increased left atrial area. Mitral Valve Mitral valve thickened. No evidence for mitral valve prolapse. No mitral stenosis. [id number] mitral regurgitation. Aortic Valve Normally functioning Edward Shilpa 3 27mm bioprosthetic aortic valve without stenosis with a peak velocity of 1.8 m/s, peak gradient 13 mmHg, mean gradient 7 mmHg, and estimated aortic valve area of 1.9 cm???. No paravalvular aortic regurgitation. No central aortic regurgitation. Tricuspid Valve Structurally normal tricuspid valve. No tricuspid stenosis. [id number] tricuspid regurgitation. Pulmonic Valve Structurally normal pulmonic valve. No pulmonic stenosis. Mild pulmonic regurgitation. Pericardium No pericardial effusion. Aorta Normal size aortic root and proximal ascending aorta. CONCLUSIONS Normally functioning bioprosthetic valve in elevated position Mild to moderate mitral and tricuspid regurgitation Mild LV systolic dysfunction Previewed by: Dr. Jl Berg MD (Electronically Signed) Final Date: 27 December 2023 17:47
[2023-12-27 19:50] LABS: Glucose,Whole Blood 105 mg/dL (70-110)
[2023-12-27] MEDS: MONTELUKAST 10 MG TAB PO SCH (20:49)
[2023-12-27] MEDS ORDERED: METOPROLOL TARTRATE 25 MG TAB PO SCH (21:00)
[2023-12-28 06:02] LABS: Glucose,Whole Blood 115 mg/dL (70-110)
[2023-12-28] MEDS: IV FLUID CONTINUATION 1,000 ML IV ONE (07:33)
[2023-12-28 08:12] VITALS: RESP 16
[2023-12-28 08:31] VITALS: BP 122/60; PULSE 68
[2023-12-28 10:39] VITALS: TEMP 97.7
--- NOTE | 2023-12-28 10:58 | P.DS ---
Providers Date of admission: 12/26/23 20:54 Expected date of discharge: 12/28/23 Attending physician: Suraj iPke Consults: 12/26/23 20:52 Consult Physician Urgent Consulting Provider: [facility] Consult Reason/Comments: acute atrial tachycardia Do you want consulting provider notified?: Yes Primary care physician: [facility] Course: Final Diagnoses: Atrial flutter with RVR Chronic paroxysmal atrial fibrillation status post multiple cardioversions, ablations, anticoagulated on Eliquis History of bioprosthetic aortic valve replacement CAD Hypertension Diabetes mellitus II, hemoglobin A1c 6.1 Hospital course: This is a pleasant 83-year-old gentleman, 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 Reported his heart rate was 122 at home. Reports compliant with his home medication regimen including metoprolol and Eliquis.EKG reporting atrial flutter with RVR.Chest x-ray reported no evidence for acute pulmonary disease.Afebrile, normal WBC, hematology, coagulation and chemistry panels unremarkable; sodium 140, potassium 4.1, magnesium 1.9, renal function stable, TSH 1.860. blood sugars controlled. Maintained on IV Cardizem, metoprolol. Anticoagulated on Eliquis. Cardiology consult in place. 12/28/2023 echo reported normally functioning bioprosthetic valve in elevated position, mild to moderate mitral and tricuspid regurgitation mild LV systolic dysfunction , EF 40 to 45%.EKG reporting atrial flutter/tachycardia, NPO,scheduled for cardioversion this morning. Successful cardioversion completed this morning, cleared for discharge per cardiology. Patient will be discharged home today in a stable condition with guarded prognosis. The impression and plan of care has been dictated as directed. : I performed a history and examination of this patient, discussed the same with the dictator. I agree with the dictator's note ,documented as a scribe. Any additional findings or plans will be noted. Patient Condition at Discharge: Stable Plan - Discharge Summary Discharge Rx Participant: No New Discharge Prescriptions: Continue tadalafiL 5 mg PO DAILY Multivit-Mins/Iron/Folic/Lycop [Centrum Men's Tablet] 1 tab PO DAILY metFORMIN HCL ER [Glucophage XR] 500 mg PO AC-BID Magnesium Oxide [Magox 400] 400 mg PO BID-W/MEALS Pentwater-3 Acid Ethyl Esters [Lovaza] 2 gm PO BID Aspirin EC [Ecotrin Low Dose] 81 mg PO DAILY Montelukast [Singulair] 5 mg PO HS Lansoprazole [Prevacid] 30 mg PO W/SUPPER Albuterol Inhaler [Ventolin Hfa Inhaler] 1 puff INHALATION RT-Q4H PRN PRN Reason: Shortness Of Breath Tamsulosin [Flomax] 0.4 mg PO DAILY Apixaban [Eliquis] 5 mg PO BID Changed Metoprolol Tartrate [Lopressor] 75 mg PO BID #90 tab Discontinued amLODIPine BESYLATE/BENAZEPRIL [Lotrel 5-20 mg Capsule] 1 cap PO HS Discharge Medication List Albuterol Inhaler [Ventolin Hfa Inhaler] 1 puff INHALATION RT-Q4H PRN 04/07/23 [History] Aspirin EC [Ecotrin Low Dose] 81 mg PO DAILY 04/07/23 [History] Lansoprazole [Prevacid] 30 mg PO W/SUPPER 04/07/23 [History] Magnesium Oxide [Magox 400] 400 mg PO BID-W/MEALS 04/07/23 [History] Montelukast [Singulair] 5 mg PO HS 04/07/23 [History] Multivit-Mins/Iron/Folic/Lycop [Centrum Men's Tablet] 1 tab PO DAILY 04/07/23 [History] Pentwater-3 Acid Ethyl Esters [Lovaza] 2 gm PO BID 04/07/23 [History] metFORMIN HCL ER [Glucophage XR] 500 mg PO AC-BID 04/07/23 [History] tadalafiL 5 mg PO DAILY 04/07/23 [History] Apixaban [Eliquis] 5 mg PO BID 12/26/23 [History] Tamsulosin [Flomax] 0.4 mg PO DAILY 12/26/23 [History] Metoprolol Tartrate [Lopressor] 75 mg PO BID #90 tab 12/28/23 [Rx] Follow up Appointment(s)/Referral(s): Glendy,Suraj Jr, DO [Primary Care Provider] - 1-2 days Activity/Diet/Wound Care/Special Instructions: Hemoglobin A1c 6.1
--- NOTE | 2023-12-28 11:35 | P.PCN ---
Date of Procedure: 12/28/23 Operative Findings: Cardioversion Report Performing physician Richie Lewis M.D. Procedure performed Successful cardioversion of atrial fibrillation to normal sinus mechanism using 100 J at first attempt Indication Symptomatic atrial fibrillation Complication None Level of sedation The procedure was performed under deep sedation using propofol with [employer] in the room Procedure description After obtaining an informed consent the patient was brought to the recovery room. Sedation was introduced using propofol with [employer] in the room. Subsequently the patient cardioverted from atrial fibrillation to normal sinus mechanism using 100 J and first attempt Conclusion Successful cardioversion of atrial fibrillation to normal sinus mechanism using 100 J Postprocedure management Continue the current medical regimen Continue oral anticoagulation Follow-up with the patient
== END 2023-12-28 10:58 | disposition home or self-care (01) | DRG 310 ==
LOC: EC 16:03 → 3SCARD 20:53 → OBSVTOIN 20:54 → 3SCARD 21:16
PROVIDERS: ADMIT Family Medicine; ATTEND Family Medicine
PROC: 5A2204Z Restoration of Cardiac Rhythm, Single (ICD-10-PCS; principal; 2023-12-28 07:30)
DX: I48.0 Paroxysmal atrial fibrillation (principal); Z79.01 Long term (current) use of anticoagulants; E11.9 Type 2 diabetes mellitus without complications; I08.1 Rheumatic disorders of both mitral and tricuspid valves; I10 Essential (primary) hypertension; I25.10 Atherosclerotic heart disease of native coronary artery without angina pectoris; I47.19 Other supraventricular tachycardia; I48.3 Typical atrial flutter; J45.909 Unspecified asthma, uncomplicated; Z87.01 Personal history of pneumonia (recurrent); Z79.84 Long term (current) use of oral hypoglycemic drugs; Z79.899 Other long term (current) drug therapy; Z79.82 Long term (current) use of aspirin; Z85.828 Personal history of other malignant neoplasm of skin; Z87.891 Personal history of nicotine dependence; Z95.1 Presence of aortocoronary bypass graft; Z95.3 Presence of xenogenic heart valve
CPT/HCPCS: 36415; 71046; 80048; 80053; 83036; 83735; 84443; 84484; 85025; 85610; 85730; 92960; 93005; 93306; 96365; 96366; 96368; 99291

== ENCOUNTER → 2024-09-13 | Outpatient (CLI) | payer MEDICARE, OTHER ==
[2024-09-13 08:59] LABS: INR 1.1 (<1.2); Partial Thromboplastin Time 25.9 sec (22.0-30.0); Prothrombin Time 12.4 sec (10.0-12.5)
[2024-09-13 10:23] LABS: HCT 40.8 % (39.6-50.0); HGB 13.1 g/dL (13.0-17.0); MCH 28.8 pg (27.0-32.0); MCHC 32.1 g/dL (32.0-37.0); MCV 89.7 FL (80.0-97.0); Mean Platelet Volume 10.7 FL (9.5-12.2); NRBC Per 100 WBC 0 X 10*3/uL (0.00-0.01); Platelet Count 273 X 10*3/uL (140-440); RBC 4.55 X 10*6/uL (4.40-5.60); RDW 13.7 % (11.5-14.5); WBC 9.57 X 10*3/uL (4.50-10.00)
[2024-09-13 10:47] LABS: BUN/Creat Ratio 19.29 Ratio (12.00-20.00); Blood Urea Nitrogen 13.5 mg/dL (9.0-27.0); Calcium 9.1 mg/dL (8.7-10.3); Carbon Dioxide 22.7 mmol/L (21.6-31.8); Chloride 103 mmol/L (96-109); Glucose 123 mg/dL (70-110); Potassium 4.9 mmol/L (3.5-5.5); Sodium 139 mmol/L (135-145)
== END | disposition home or self-care (01) ==
LOC: LABWHC1 07:31
PROVIDERS: ATTEND Internal Medicine
DX: I48.4 Atypical atrial flutter (principal)
CPT/HCPCS: 36415; 80048; 85027; 85610; 85730

== ENCOUNTER → 2024-12-20 | Outpatient (CLI) | payer MEDICARE, OTHER ==
[2024-12-20 10:21] LABS: HCT 40.4 % (39.6-50.0); HGB 13.2 g/dL (13.0-17.0); MCH 29.9 pg (27.0-32.0); MCHC 32.7 g/dL (32.0-37.0); MCV 91.6 FL (80.0-97.0); NRBC Per 100 WBC 0 X 10*3/uL (0.00-0.01); Platelet Count 246 X 10*3/uL (140-440); RBC 4.41 X 10*6/uL (4.40-5.60); RDW 13.2 % (11.5-14.5); WBC 6.05 X 10*3/uL (4.50-10.00)
[2024-12-20 10:39] LABS: ALT 17 U/L (10-49); AST 22 U/L (14-35); Anion Gap 9.90 mmol/L (4.00-12.00); BUN/Creat Ratio 18.57 Ratio (12.00-20.00); Blood Urea Nitrogen 13.0 mg/dL (9.0-27.0); Calcium 9.1 mg/dL (8.7-10.3); Carbon Dioxide 25.1 mmol/L (21.6-31.8); Chloride 105 mmol/L (96-109); Cholesterol 134.00 mg/dL (0.00-200.00); Glucose 115 mg/dL (70-110); HDL Cholesterol 36.50 mg/dL (40.00-60.00); LDL Cholesterol,Calculated 88.9 mg/dL (0.0-131.0); Potassium 4.6 mmol/L (3.5-5.5); Sodium 140 mmol/L (135-145); Triglycerides 43.00 mg/dL (0.00-149.00); VLDL Calculation 8.60 mg/dL (5.00-40.00)
== END | disposition home or self-care (01) ==
LOC: LABWHC1 07:57
PROVIDERS: ATTEND Internal Medicine Cardiovascular Disease
DX: I48.11 Longstanding persistent atrial fibrillation (principal); E78.2 Mixed hyperlipidemia; R06.02 Shortness of breath
CPT/HCPCS: 36415; 80048; 80061; 84443; 84450; 84460; 85027